=== PATIENT | male | born 1950 | race Caucasian/White ===

== ENCOUNTER 2025-02-24 06:08 | Inpatient (IN) ==
[2025-02-24] MEDS: ADENOSINE IV SOLN 3 MG/ML 2 ML VIAL IV STA (06:41)
[2025-02-24] MEDS: METOPROLOL TARTRATE 1 MG/ML VIAL IV STA (06:50)
--- NOTE | 2025-02-24 06:51 | Emergency Department Note ---
Impression & Plan Dysrhythmia, Dizziness, Acute kidney injury superimposed on chronic kidney disease, Acute dehydration, Hypomagnesemia, Elevated troponin ED Provider Note HISTORY OF PRESENT ILLNESS: Patient is a 74-year-old male presenting with dizziness and shortness of breath. Patient reports he has been feeling dizzy when he stands up and short of breath for about the last 5 days. Reports that when he stands up he feels very lightheaded like he is going to pass out. Denies any chest pain. Denies any nausea or vomiting. Denies any abdominal pain. Denies any fevers. He is on Eliquis. He states that similar symptoms occurred a few months ago when he was mated here at the hospital. He is seated in bed and denies feeling dizzy at this time. ROS: as above PHYSICAL EXAM: Constitutional: Patient appears in no acute distress. HENT: Head: Normocephalic and atraumatic. Eyes: EOMI, PERRL Mouth/Throat: Mucous membranes moist. Neck: Trachea midline. Neck supple. Cardiovascular: Tachycardic with regular rhythm. No murmurs, rubs or gallops. Intact distal pulses. Pulmonary/Chest: No respiratory distress. Breath sounds clear and equal bilaterally. No wheezes or rales. Abdominal: Abdomen soft, no tenderness, rebound or guarding. Musculoskeletal: No edema, tenderness or deformity noted. Skin: Warm and dry. No rash, erythema, pallor or cyanosis Psychiatric: Appropriate mood and affect for situation. Neurological: Alert and keenly responsive. CN II-XII grossly intact, moving all extremities equally and fully. MDM: - Vitals signs showed tachycardia. - History obtained via patient. History as above. - Chronic conditions affecting care: HTN; DM-2; COPD - Differential diagnoses include, but are not limited to: ACS; pneumonia; viral syndrome; electrolyte abnormality; dysrhythmia; PE; CVA; intracranial hemorrhage - Order placed for continuous cardiac monitoring. At this time, monitor showed rate of 177 bpm with regular rhythm, per my interpretation. - External medical records reviewed. Discharge summary dated 07/28/2024 was reviewed. Patient was admitted for syncope and collapse secondary to orthostatic hypotension. He had an echo during his admission which showed an EF of 55 to 60%. - EKG image obtained at 6:17 AM interpreted by myself showed normal sinus rhythm. Rate tachycardic at 146 bpm. QT 344. No acute ischemic changes. However, noted to have significant artifact on EKG. - Patient noted to be tachycardic on initial presentation. He had initial EKG showing sinus tachycardia as noted above. However, he did go into sustained runs of SVT. He had a persistent heart rate of 188-190. EKG image reviewed interpreted by myself obtained at 6:30 AM showed supraventricular tachycardia with a rate of 179 bpm. QT 280. - He was placed on 2 L nasal cannula and crash cart was at bedside. He was given 6 mg of adenosine and heart rate went down into the 70s and appeared to be in a sinus rhythm on telemetry. Repeat EKG obtained at 6:42 AM interpreted and reviewed by myself showed normal sinus rhythm. Tachycardic with a rate of 113 bpm. No acute ischemic changes. Patient keeps intermittently going into runs of SVT with a heart rate of 190. However, his heart rate will then go down to the 130s. Currently at 6:50 AM, heart rate on telemetry is 105. 5 mg of IV Lopressor was administered. - Laboratory workup interpreted by myself showed normal WBC; normal PT/INR; stable electrolytes other than hypomagnesemia (Mg 1.6); HAKEEM on CKD (Cr 2.07); elevated troponin (67.7); normal lactic acid; normal procalcitonin - CXR image reviewed interpreted by myself is negative pneumonia, per my interpretation. Radiology notes mild to minimal congestive changes which show interval improvement and possible trace right-sided pleural effusion. - COVID/flu/RSV negative - Patient given 1L NS in ER and 1g IV magnesium for electrolyte abnormality - Heart rate has remained in a stable normal sinus rhythm with a rate of 85 to 90 bpm. - Discussion was had with disease case manager about patient's case and need for admission - Hospitalist consulted for admission - [facility]. I have personally spent 61 minutes of critical care time in the direct management of this patient. This includes bedside care, interpretation of diagnostic studies, and testing, discussion with consultants, patient, and family members, and other required patient management activities. This 61 minutes is in excess of all separately billable procedures. ASSESSMENT AND PLAN: Diagnosis: dysrhythmia; dizziness; HAKEEM on CKD; hypomagnesemia; acute dehydration; elevated troponin Plan: admit Past Med/Surg History Problem List (Updated 02/24/25 @ 09:43 by Radha Cuellar MD) Elevated troponin (Acute) Hypomagnesemia (Acute) Acute dehydration (Acute) Acute kidney injury superimposed on chronic kidney disease (Acute) Dizziness (Acute) Dysrhythmia (Acute) Adrenal insufficiency Orthostasis Syncope Elevated procalcitonin (Acute) Elevated lactic acid level (Acute) Transaminitis (Acute) Non-ST elevation WI (NSTEMI) (Acute) Syncope and collapse (Acute) Medical History (Updated 02/24/25 @ 09:43 by Radha Cuellar MD) Hematuria Carcinoma in situ of bladder Recurrent Starting mid 03/2024, stopped immunotherapy due to issues with liver and pancreas, "currently on prednisone to help with this" Lumbar herniated disc Chronic back pain R/t injury when he was in the as he fell on his back HTN (hypertension) Malignant neoplasm of kidney 2018 [facility] Left nephrectomy and currently undergoing cysto procedures q 3months Exposure to Agent [place] [employer] History of chemotherapy 2018 - administered in [facility] 2023- immunotherapy for bladder cancer and tumor in right kidney (stopped mid 03/2024 "due to issues with liver and pancreas") Bilateral hearing loss Hearing Aids (doesn't use d/t tinnitus per patient) Diabetes type 2, controlled IDDM Obstructive sleep apnea No longer uses CPAP Gout COPD (chronic obstructive pulmonary disease) CKD (chronic kidney disease), stage III Bilateral primary osteoarthritis of hip Surgical History S/P cystoscopy with ureteral stent placement 02/2024, stent exchange Hx of toe surgery (2023) R/t ingrown toenails Port-A-Cath in place (12/05/23) Insertion MRI Compatible Access Port History of nephrectomy, left (2017) Cancer and kidney was removed in 2018 Hx of nasal septoplasty (Unknown) due to deviated septum H/O colonoscopy H/O foot surgery Right - Big Toe History of removal of Port-a-Cath 2018 H/O cystoscopy multiple (Every 3 months) Currently has stent in place History of kidney surgery (2023) Left kidney removal 2018 r/t cancer "Laser to my Right Kidney for cancer 2023" Family History Brother Clotting disorder Diabetes Social History Smoking Status: Former smoker Tobacco Type: Cigarettes Age Started Using Tobacco: 12; Age Quit Using Tobacco: 65; Second Hand Exposure: Yes (hx growing up); Do You Dip or Chew Tobacco: No; Hx Alcohol Use: No Hx Substance Use: No Preferred Language: Central African Communication Ability: Effective Perioperative Educator Required: No Beliefs That Will Affect Care: None marital status: Current Living Situation: Family current occupational status: retired How many Children do You have: 2 Feels Safe at Home: Yes Diet: diabetic during the past year weight has: remained stable Assistive Devices: Cane Allergies Allergies Allergy/AdvReac Type Severity Reaction Status Date / Time Penicillins AdvReac Severe Syncope Verified 07/25/24 20:19 sulfamethoxazole AdvReac Intermediate "Elevated Verified 07/25/24 20:19 [From Bactrim] Liver readings" trimethoprim [From Bactrim] AdvReac Intermediate "Elevated Verified 07/25/24 20:19 Liver readings" olodaterol AdvReac Mild sore throat Verified 07/25/24 20:19 [From Stiolto Respimat] tiotropium AdvReac Mild sore throat Verified 07/25/24 20:19 [From Stiolto Respimat] lisinopril AdvReac Unknown was told Verified 07/25/24 20:19 not take due to diabetes Home Meds Home Medications Medication Instructions Recorded Confirmed allopurinol 100 mg tablet 100 mg PO QAM 03/14/22 02/24/25 cholecalciferol (vitamin D3) 25 25 mcg PO BID 03/14/22 02/24/25 mcg (1,000 unit) capsule insulin glargine 100 unit/mL (3 10 unit subcut QAM 04/17/22 02/24/25 mL) subcutaneous pen duloxetine 30 mg capsule,delayed 30 mg PO DAILY 07/25/24 02/24/25 release sprinkle fludrocortisone 0.1 mg tablet 0.1 mg PO DAILY 07/25/24 02/24/25 insulin aspart U-100 100 unit/mL 0 unit subcut TIDM 07/25/24 02/24/25 (3 mL) subcutaneous pen (Novolog FlexPen U-100 Insulin aspart) midodrine 10 mg tablet 10 mg PO TID 07/25/24 02/24/25 vitamin B complex-vitamin C-folic 1 tab PO DAILY 07/25/24 02/24/25 acid 0.8 mg tablet (Renal Vitamin) apixaban 5 mg tablet 5 mg PO AMHS 02/24/25 02/24/25 atovaquone 750 mg/5 mL oral 1,500 mg PO QAM 02/24/25 02/24/25 suspension insulin NPH isoph U-100 human 100 0 unit subcut DIRECTED PRN 02/24/25 02/24/25 unit/mL subcutaneous suspension PREDNISONE (Humulin N NPH U-100 Insulin (isophane susp)) mycophenolate mofetil 500 mg tablet 1,000 mg PO AMHS 02/24/25 02/24/25 prednisolone 5 mg tablet 15 mg PO QAM 02/24/25 02/24/25 propranolol 10 mg tablet 20 mg PO AMHS 02/24/25 02/24/25 tacrolimus 1 mg tablet,extended 1 mg PO AMHS 02/24/25 02/24/25 release 24 hr Previous Rx's Medication Instructions Recorded levothyroxine 112 mcg tablet 112 mcg PO DAILYBB #30 tabs 07/28/24 (Synthroid) Results & Data (ED) Vital Signs Vital Signs - 24 hr 02/24/25 06:20 02/24/25 06:23 02/24/25 06:24 Temperature 37.9 C H Temperature Source Oral Pulse Rate 156 H 110 H Pulse Rate [Apical] Pulse Rate from SpO2 Sensor Pulse Rhythm [Apical] Respiratory Rate 22 Respiratory Effort / Characteristics Non-Labored Spontaneous Respiratory Depth Normal Respiratory Pattern Regular Blood Pressure 138/97 Blood Pressure [Left Arm] Blood Pressure Mean 110 Blood Pressure Mean [Left Arm] Blood Pressure Position Semi-fowlers Blood Pressure Position [Left Arm] Pulse Oximetry 95 95 Oxygen Delivery Method Room Air Room Air Sepsis Recent Fever Within 48 Hours Yes Sepsis New/Unexplained Change in Mental Status No Sepsis Action Taken by Nursing Physician Notified 02/24/25 06:28 02/24/25 06:30 02/24/25 06:32 Temperature Temperature Source Pulse Rate 180 H 180 H Pulse Rate [Apical] Pulse Rate from SpO2 Sensor 108 H Pulse Rhythm [Apical] Respiratory Rate Respiratory Effort / Characteristics Respiratory Depth Respiratory Pattern Blood Pressure 117/66 Blood Pressure [Left Arm] Blood Pressure Mean 90 Blood Pressure Mean [Left Arm] Blood Pressure Position Blood Pressure Position [Left Arm] Pulse Oximetry 94 Oxygen Delivery Method Sepsis Recent Fever Within 48 Hours Sepsis New/Unexplained Change in Mental Status Sepsis Action Taken by Nursing 02/24/25 06:42 02/24/25 06:44 02/24/25 06:45 Temperature Temperature Source Pulse Rate 137 H 116 H 190 H Pulse Rate [Apical] Pulse Rate from SpO2 Sensor Pulse Rhythm [Apical] Respiratory Rate 20 Respiratory Effort / Characteristics Respiratory Depth Respiratory Pattern Blood Pressure Blood Pressure [Left Arm] Blood Pressure Mean Blood Pressure Mean [Left Arm] Blood Pressure Position Blood Pressure Position [Left Arm] Pulse Oximetry 99 Oxygen Delivery Method Sepsis Recent Fever Within 48 Hours Sepsis New/Unexplained Change in Mental Status Sepsis Action Taken by Nursing 02/24/25 06:48 02/24/25 06:50 02/24/25 06:50 Temperature Temperature Source Pulse Rate 107 H 180 H Pulse Rate [Apical] Pulse Rate from SpO2 Sensor Pulse Rhythm [Apical] Respiratory Rate 23 Respiratory Effort / Characteristics Respiratory Depth Respiratory Pattern Blood Pressure 121/77 121/77 Blood Pressure [Left Arm] Blood Pressure Mean 86 Blood Pressure Mean [Left Arm] Blood Pressure Position Blood Pressure Position [Left Arm] Pulse Oximetry 100 Oxygen Delivery Method Sepsis Recent Fever Within 48 Hours Sepsis New/Unexplained Change in Mental Status Sepsis Action Taken by Nursing 02/24/25 06:51 02/24/25 06:54 02/24/25 06:54 Temperature Temperature Source Pulse Rate 101 H 155 H Pulse Rate [Apical] Pulse Rate from SpO2 Sensor Pulse Rhythm [Apical] Respiratory Rate 24 19 Respiratory Effort / Characteristics Respiratory Depth Respiratory Pattern Blood Pressure 120/72 Blood Pressure [Left Arm] Blood Pressure Mean 84 Blood Pressure Mean [Left Arm] Blood Pressure Position Blood Pressure Position [Left Arm] Pulse Oximetry 99 98 Oxygen Delivery Method Sepsis Recent Fever Within 48 Hours Sepsis New/Unexplained Change in Mental Status Sepsis Action Taken by Nursing 02/24/25 07:00 02/24/25 07:00 02/24/25 07:01 Temperature Temperature Source Pulse Rate 83 Pulse Rate [Apical] 83 Pulse Rate from SpO2 Sensor Pulse Rhythm [Apical] Irregular Respiratory Rate 22 21 Respiratory Effort / Characteristics Non-Labored Spontaneous Respiratory Depth Normal Respiratory Pattern Regular Blood Pressure 121/69 Blood Pressure [Left Arm] 121/69 Blood Pressure Mean 92 Blood Pressure Mean [Left Arm] 86 Blood Pressure Position Blood Pressure Position [Left Arm] Semi-fowlers Pulse Oximetry 98 100 Oxygen Delivery Method Room Air Sepsis Recent Fever Within 48 Hours Sepsis New/Unexplained Change in Mental Status Sepsis Action Taken by Nursing 02/24/25 07:06 02/24/25 07:06 02/24/25 07:06 Temperature Temperature Source Pulse Rate 84 83 Pulse Rate [Apical] Pulse Rate from SpO2 Sensor 82 Pulse Rhythm [Apical] Respiratory Rate 22 Respiratory Effort / Characteristics Respiratory Depth Respiratory Pattern Blood Pressure 118/74 118/74 Blood Pressure [Left Arm] Blood Pressure Mean 101 Blood Pressure Mean [Left Arm] Blood Pressure Position Blood Pressure Position [Left Arm] Pulse Oximetry 98 Oxygen Delivery Method Sepsis Recent Fever Within 48 Hours Sepsis New/Unexplained Change in Mental Status Sepsis Action Taken by Nursing 02/24/25 07:09 02/24/25 07:11 02/24/25 07:11 Temperature Temperature Source Pulse Rate 82 Pulse Rate [Apical] Pulse Rate from SpO2 Sensor 83 Pulse Rhythm [Apical] Respiratory Rate 21 Respiratory Effort / Characteristics Respiratory Depth Respiratory Pattern Blood Pressure 133/83 Blood Pressure [Left Arm] Blood Pressure Mean 108 Blood Pressure Mean [Left Arm] Blood Pressure Position Blood Pressure Position [Left Arm] Pulse Oximetry 98 97 Oxygen Delivery Method Room Air Sepsis Recent Fever Within 48 Hours Sepsis New/Unexplained Change in Mental Status Sepsis Action Taken by Nursing 02/24/25 07:12 02/24/25 07:18 02/24/25 07:20 Temperature Temperature Source Pulse Rate 84 81 Pulse Rate [Apical] Pulse Rate from SpO2 Sensor 84 81 Pulse Rhythm [Apical] Respiratory Rate 20 Respiratory Effort / Characteristics Respiratory Depth Respiratory Pattern Blood Pressure 139/79 Blood Pressure [Left Arm] Blood Pressure Mean 109 Blood Pressure Mean [Left Arm] Blood Pressure Position Blood Pressure Position [Left Arm] Pulse Oximetry 98 98 Oxygen Delivery Method Sepsis Recent Fever Within 48 Hours Sepsis New/Unexplained Change in Mental Status Sepsis Action Taken by Nursing 02/24/25 07:21 02/24/25 07:30 02/24/25 07:30 Temperature Temperature Source Pulse Rate 81 81 Pulse Rate [Apical] Pulse Rate from SpO2 Sensor 81 81 Pulse Rhythm [Apical] Respiratory Rate 24 Respiratory Effort / Characteristics Respiratory Depth Respiratory Pattern Blood Pressure 145/81 H Blood Pressure [Left Arm] Blood Pressure Mean 103 Blood Pressure Mean [Left Arm] Blood Pressure Position Blood Pressure Position [Left Arm] Pulse Oximetry 97 95 Oxygen Delivery Method Sepsis Recent Fever Within 48 Hours Sepsis New/Unexplained Change in Mental Status Sepsis Action Taken by Nursing 02/24/25 07:48 02/24/25 07:50 02/24/25 07:51 Temperature Temperature Source Pulse Rate 87 86 Pulse Rate [Apical] Pulse Rate from SpO2 Sensor 86 88 Pulse Rhythm [Apical] Respiratory Rate 27 H 20 Respiratory Effort / Characteristics Respiratory Depth Respiratory Pattern Blood Pressure 134/78 Blood Pressure [Left Arm] Blood Pressure Mean 96 Blood Pressure Mean [Left Arm] Blood Pressure Position Blood Pressure Position [Left Arm] Pulse Oximetry 96 96 Oxygen Delivery Method Sepsis Recent Fever Within 48 Hours Sepsis New/Unexplained Change in Mental Status Sepsis Action Taken by Nursing 02/24/25 08:00 02/24/25 08:00 02/24/25 08:09 Temperature Temperature Source Pulse Rate 88 85 Pulse Rate [Apical] Pulse Rate from SpO2 Sensor 86 86 Pulse Rhythm [Apical] Respiratory Rate 25 H 24 Respiratory Effort / Characteristics Respiratory Depth Respiratory Pattern Blood Pressure 128/80 Blood Pressure [Left Arm] Blood Pressure Mean 90 Blood Pressure Mean [Left Arm] Blood Pressure Position Blood Pressure Position [Left Arm] Pulse Oximetry 92 96 Oxygen Delivery Method Sepsis Recent Fever Within 48 Hours Sepsis New/Unexplained Change in Mental Status Sepsis Action Taken by Nursing 02/24/25 08:10 02/24/25 08:12 02/24/25 08:18 Temperature Temperature Source Pulse Rate 88 89 Pulse Rate [Apical] Pulse Rate from SpO2 Sensor 86 85 Pulse Rhythm [Apical] Respiratory Rate 18 24 Respiratory Effort / Characteristics Respiratory Depth Respiratory Pattern Blood Pressure 128/86 Blood Pressure [Left Arm] Blood Pressure Mean 101 Blood Pressure Mean [Left Arm] Blood Pressure Position Blood Pressure Position [Left Arm] Pulse Oximetry 97 94 Oxygen Delivery Method Sepsis Recent Fever Within 48 Hours Sepsis New/Unexplained Change in Mental Status Sepsis Action Taken by Nursing 02/24/25 08:20 02/24/25 08:21 02/24/25 08:30 Temperature Temperature Source Pulse Rate 87 Pulse Rate [Apical] Pulse Rate from SpO2 Sensor 87 Pulse Rhythm [Apical] Respiratory Rate 25 H Respiratory Effort / Characteristics Respiratory Depth Respiratory Pattern Blood Pressure 138/72 133/79 Blood Pressure [Left Arm] Blood Pressure Mean 99 108 Blood Pressure Mean [Left Arm] Blood Pressure Position Blood Pressure Position [Left Arm] Pulse Oximetry 95 Oxygen Delivery Method Sepsis Recent Fever Within 48 Hours Sepsis New/Unexplained Change in Mental Status Sepsis Action Taken by Nursing 02/24/25 08:30 02/24/25 08:39 02/24/25 08:41 Temperature Temperature Source Pulse Rate 89 88 Pulse Rate [Apical] Pulse Rate from SpO2 Sensor 89 84 Pulse Rhythm [Apical] Respiratory Rate 23 18 Respiratory Effort / Characteristics Respiratory Depth Respiratory Pattern Blood Pressure 142/78 H Blood Pressure [Left Arm] Blood Pressure Mean 107 Blood Pressure Mean [Left Arm] Blood Pressure Position Blood Pressure Position [Left Arm] Pulse Oximetry 95 Oxygen Delivery Method Sepsis Recent Fever Within 48 Hours Sepsis New/Unexplained Change in Mental Status Sepsis Action Taken by Nursing 02/24/25 08:42 02/24/25 08:51 02/24/25 08:51 Temperature Temperature Source Pulse Rate 88 90 Pulse Rate [Apical] Pulse Rate from SpO2 Sensor 88 92 H Pulse Rhythm [Apical] Respiratory Rate 27 H 25 H Respiratory Effort / Characteristics Respiratory Depth Respiratory Pattern Blood Pressure 134/69 Blood Pressure [Left Arm] Blood Pressure Mean 75 Blood Pressure Mean [Left Arm] Blood Pressure Position Blood Pressure Position [Left Arm] Pulse Oximetry 95 98 Oxygen Delivery Method Sepsis Recent Fever Within 48 Hours Sepsis New/Unexplained Change in Mental Status Sepsis Action Taken by Nursing 02/24/25 09:00 02/24/25 09:00 Temperature Temperature Source Pulse Rate 90 Pulse Rate [Apical] Pulse Rate from SpO2 Sensor 160 H Pulse Rhythm [Apical] Respiratory Rate 18 Respiratory Effort / Characteristics Respiratory Depth Respiratory Pattern Blood Pressure 119/78 Blood Pressure [Left Arm] Blood Pressure Mean 96 Blood Pressure Mean [Left Arm] Blood Pressure Position Blood Pressure Position [Left Arm] Pulse Oximetry Oxygen Delivery Method Sepsis Recent Fever Within 48 Hours Sepsis New/Unexplained Change in Mental Status Sepsis Action Taken by Nursing Laboratory Data 02/24/25 06:32 02/24/25 07:41 Lab Results 02/24/25 02/24/25 02/24/25 Range/Units 06:32 06:32 06:39 WBC 6.83 (4.8-10.8) K/ul RBC 4.60 L (4.70-6.10) M/uL Hgb 13.6 L (14.0-18.0) g/dL POC Hgb 13.3 L (14.0-18.0) g/dl Hct 39.4 L (42.0-52.0) % POC Hct 39 L (42-52) % MCV 85.7 (80.0-100.0) fL MCH 29.6 (25.0-34.0) pg MCHC 34.5 (32.0-36.0) g/dL RDW Std Deviation 41.1 (36.4-46.3) fL RDW Coeff of Kusum 13.3 (11.5-14.5) % Plt Count 189 (130-400) K/uL MPV 10.2 (9.4-12.4) fL Immature Gran % (Auto) 0.6 % Neut % (Auto) 69.0 % Lymph % (Auto) 16.8 % Fannin % (Auto) 12.4 % Eos % (Auto) 0.6 % Baso % (Auto) 0.6 % Neut # (Auto) 4.71 (1.40-6.50) K/uL Lymph # (Auto) 1.15 L (1.20-3.40) K/uL Fannin # (Auto) 0.85 H (0.11-0.59) K/uL Eos # (Auto) 0.04 (0.00-0.50) K/uL Baso # (Auto) 0.04 (0.00-0.20) K/uL Immature Gran # (Auto) 0.04 (0.01-0.20) K/uL PT 10.9 (9.0-12.0) Seconds INR 1.0 (0.9-1.1) POC Sodium 133 L (135-144) mmol/L Sodium (136-145) mmol/L POC Potassium 3.9 (3.3-5.0) mmol/L Potassium (3.5-5.1) mmol/L POC Chloride 95 L (101-112) mmol/L Chloride (98-107) mmol/L Carbon Dioxide (21-32) mmol/L POC Total CO2 24 (24-31) mmol/L Anion Gap (3-11) POC Anion Gap 19.0 (16-25) mmol/L POC BUN 31 H (7-18) mg/dl BUN (6-23) mg/dl Creatinine (0.6-1.4) mg/dl POC Creatinine 2.4 H (0.6-1.3) mg/dl Est Cr Clr Drug Dosing ml/min eGFR BUN/Creatinine Ratio (10-20) Glucose (70-99(Fasting)) mg/dl POC Glucose (other) 189 H (70-99) mg/dl Lactate (0.4-2.0) mmol/L Calcium (8.6-10.3) mg/dl POC Ioniz Calcium Rohit 1.17 (1.12-1.32) mmol/l Magnesium (1.7-2.4) mg/dl Total Bilirubin (0.2-1.0) mg/dl AST (13-39) U/L ALT (7-52) U/L Alkaline Phosphatase (34-104) U/L Troponin I High Sens (0-20) pg/ml Total Protein (6.0-8.3) gm/dl Albumin (3.4-5.0) gm/dl Globulin (2.5-4.0) gm/dl Albumin/Globulin Ratio (0.9-2) Procalcitonin 0.37 Cancelled (0-0.5) ng/ml Lyme Disease Screen Negative (Negative) SARS-CoV-2 (PCR) (Negative) Influenza Type A (PCR) (Neg) Influenza Type B (PCR) (Neg) RSV (RT-PCR) (Neg) 02/24/25 02/24/25 Range/Units 07:03 07:41 WBC (4.8-10.8) K/ul RBC (4.70-6.10) M/uL Hgb (14.0-18.0) g/dL POC Hgb (14.0-18.0) g/dl Hct (42.0-52.0) % POC Hct (42-52) % MCV (80.0-100.0) fL MCH (25.0-34.0) pg MCHC (32.0-36.0) g/dL RDW Std Deviation (36.4-46.3) fL RDW Coeff of Kusum (11.5-14.5) % Plt Count (130-400) K/uL MPV (9.4-12.4) fL Immature Gran % (Auto) % Neut % (Auto) % Lymph % (Auto) % Fannin % (Auto) % Eos % (Auto) % Baso % (Auto) % Neut # (Auto) (1.40-6.50) K/uL Lymph # (Auto) (1.20-3.40) K/uL Fannin # (Auto) (0.11-0.59) K/uL Eos # (Auto) (0.00-0.50) K/uL Baso # (Auto) (0.00-0.20) K/uL Immature Gran # (Auto) (0.01-0.20) K/uL PT (9.0-12.0) Seconds INR (0.9-1.1) POC Sodium (135-144) mmol/L Sodium 135 L (136-145) mmol/L POC Potassium (3.3-5.0) mmol/L Potassium 4.1 (3.5-5.1) mmol/L POC Chloride (101-112) mmol/L Chloride 100 (98-107) mmol/L Carbon Dioxide 27 (21-32) mmol/L POC Total CO2 (24-31) mmol/L Anion Gap 8 (3-11) POC Anion Gap (16-25) mmol/L POC BUN (7-18) mg/dl BUN 29 H (6-23) mg/dl Creatinine 2.07 H (0.6-1.4) mg/dl POC Creatinine (0.6-1.3) mg/dl Est Cr Clr Drug Dosing 33.2 ml/min eGFR 32.99 BUN/Creatinine Ratio 14.0 (10-20) Glucose 177 H (70-99(Fasting)) mg/dl POC Glucose (other) (70-99) mg/dl Lactate 1.6 (0.4-2.0) mmol/L Calcium 8.6 (8.6-10.3) mg/dl POC Ioniz Calcium Rohit (1.12-1.32) mmol/l Magnesium 1.6 L (1.7-2.4) mg/dl Total Bilirubin 0.9 (0.2-1.0) mg/dl AST 22 (13-39) U/L ALT 24 (7-52) U/L Alkaline Phosphatase 79 (34-104) U/L Troponin I High Sens 67.7 H* (0-20) pg/ml Total Protein 5.2 L (6.0-8.3) gm/dl Albumin 3.3 L (3.4-5.0) gm/dl Globulin 1.9 L (2.5-4.0) gm/dl Albumin/Globulin Ratio 1.7 (0.9-2) Procalcitonin (0-0.5) ng/ml Lyme Disease Screen (Negative) SARS-CoV-2 (PCR) NEGATIVE (Negative) Influenza Type A (PCR) Negative (Neg) Influenza Type B (PCR) Negative (Neg) RSV (RT-PCR) Negative (Neg) Administered Medications Discontinued Medications Adenosine (Adenosine Iv Soln 3 Mg/Ml 2 Ml Vial) Confirm Administered Dose 6 mg IV .STK-MED ONE Stop: 02/24/25 06:38 Last Admin: 02/24/25 07:01 Dose: Not Given Documented By: EMB Adenosine (Adenosine Iv Soln 3 Mg/Ml 2 Ml Vial) 6 mg IV NOW STA Stop: 02/24/25 07:01 Last Admin: 02/24/25 06:41 Dose: 6 mg Documented By: EMB Sodium Chloride (Nss) 1,000 mls @ 999 mls/hr IV .Q1H1M ONE Stop: 02/24/25 08:04 Last Infusion: 02/24/25 08:17 Dose: Infused Documented By: Admin: 02/24/25 07:05 Dose: 999 mls/hr Documented By: EMB Magnesium Sulfate/Dextrose (Magnesium Sulfate / D5w) 1 gm in 100 mls @ 100 mls/hr IV NOW STA Stop: 02/24/25 09:22 Last Admin: 02/24/25 08:37 Dose: 100 mls/hr Documented By: TNK Metoprolol Tartrate (Metoprolol Tartrate 1 Mg/Ml Vial) 5 mg IV NOW STA Stop: 02/24/25 06:47 Last Admin: 02/24/25 06:50 Dose: 5 mg Documented By: EMB Metoprolol Tartrate (Metoprolol Tartrate 1 Mg/Ml Vial) Confirm Administered Dose 5 mg IV .STK-MED ONE Stop: 02/24/25 06:49 Last Admin: 02/24/25 07:01 Dose: Not Given Documented By: EMB Imaging Data Radiologist's Impression: Chest X-Ray 02/24/25 06:46 EXAM: XR chest 1V portable CLINICAL HISTORY: dizziness TECHNIQUE: An X-ray image of the chest was obtained in AP projection. 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 Its tip is at the cavoatrial junction in an optimal position. Slightly increased bronchovascular markings are present in the suprahilar region, likely congestive in etiology. No lobar collapse or consolidation seen. A blunted right costophrenic angle is seen, which could be due to a streak of pleural fluid or minimal pleural thickening. Normal-appearing left CP angle. Heart and Mediastinum: Heart size and shape are normal. No mediastinal widening or masses. No hilar or mediastinal lymphadenopathy. Bony Thorax: Bony thorax appears intact without fractures or deformities. Soft Tissues: Soft tissues overlying the chest wall are unremarkable. IMPRESSION: 1. Mild to minimal congestive changes are seen in the lung lamb. Interval improvement. 2. Possible trace of right-sided pleural effusion/pleural thickening. Interval new. 3. Left jugular CVP line in situ. Its tip is at the cavoatrial junction in an optimal position. Interval stable. Electronically signed by Christoph Dove 02-24-2025 08:24 AM Discharge Plan Visit Data Chief Complaint: Dizziness Stated Complaint: DIZZINESS ED Provider: Radha Cuellar Discharge Problem: Dysrhythmia, Dizziness, Acute kidney injury superimposed on chronic kidney disease, Acute dehydration, Hypomagnesemia, Elevated troponin Patient Disposition: Admitted As Inpatient Condition: Fair Forms Stand Alone Forms: My [facility] Prescriptions Prescriptions: No Action cholecalciferol (vitamin D3) 25 mcg (1,000 unit) capsule 25 mcg PO BID allopurinol 100 mg tablet 100 mg PO QAM insulin glargine 100 unit/mL (3 mL) insulin pen 10 unit subcut QAM mycophenolate mofetil 500 mg Tablet 1,000 mg PO AMHS propranolol 10 mg Tablet 20 mg PO AMHS Humulin N NPH U-100 Insulin 100 unit/mL Suspension 0 unit SUBCUT DIRECTED PRN (Reason: PREDNISONE) Rx Instructions: 16 UNITS ON PREDNISONE DAYS prednisolone 5 mg Tablet 15 mg PO QAM Rx Instructions: WITH NPH INSULIN atovaquone 750 mg/5 mL Suspension 1,500 mg PO QAM Rx Instructions: must administer with food, preferably a high-fat meal apixaban 5 mg Tablet 5 mg PO AMHS tacrolimus 1 mg Tablet Extended Release 24 Hr 1 mg PO AMHS Rx Instructions: must be taken on empty stomach Renal Vitamin 0.8 mg Tablet 1 tab PO DAILY fludrocortisone 0.1 mg Tablet 0.1 mg PO DAILY midodrine 10 mg Tablet 10 mg PO TID Rx Instructions: TAKE AT 0500, 1100, & 1700. do not give last dose of day after 6PM or within 4 hrs of bedtime insulin aspart U-100 [Novolog FlexPen U-100 Insulin] 100 unit/mL (3 mL) Insulin Pen 0 unit SUBCUT TIDM Rx Instructions: TAKES 8 UNITS W/BREAKFAST, 10 UNITS W/LUNCH, 10 UNITS W/SUPPER PLUS SLIDING SCALE WITH HIS MEALS 151-200 - 2 UNITS 201-250 - 4 UNITS 251-300 - 6 UNITS 301-350 - 8 UNITS 351-400 - 10 UNITS OVER 400 - 10 UNITS duloxetine 30 mg Capsule, Delayed Rel Sprinkle 30 mg PO DAILY levothyroxine [Synthroid] 112 mcg Tablet 112 mcg PO DAILYBB Qty: 30 0RF Referrals Referrals: Charlette Barber PA-C [Outside Practitioners] -
[2025-02-24] MEDS: METOPROLOL TARTRATE 1 MG/ML VIAL IV ONE (07:01)
[2025-02-24] MEDS: ADENOSINE IV SOLN 3 MG/ML 2 ML VIAL IV ONE (07:01)
[2025-02-24] MEDS: SODIUM CHLORIDE 0.9% 1,000 ML IV ONE (07:05)
[2025-02-24 07:06] LABS: Hematocrit (blood only) 39.4 % (42.0-52.0); Hemoglobin 13.6 g/dL (14.0-18.0); Immature Granulocytes # (auto) 0.04 K/uL (0.01-0.20); Immature Granulocytes % (auto) 0.6 %; Mean Corpuscular Hemoglobin 29.6 pg (25.0-34.0); Mean Corpuscular Volume 85.7 fL (80.0-100.0); Platelet Count 189 K/uL (130-400); RDW Standard Deviation 41.1 fL (36.4-46.3); Red Blood Count 4.60 M/uL (4.70-6.10); White Blood Count 6.83 K/ul (4.8-10.8)
[2025-02-24 07:34] LABS: INR 1.0 (0.9-1.1); Prothrombin Time 10.9 Seconds (9.0-12.0)
[2025-02-24 08:09] LABS: Influenza A virus by PCR Negative (Neg); Influenza B virus by PCR Negative (Neg); SARS CoV2 RNA(COVID-19) Ceph NEGATIVE (Negative)
[2025-02-24 08:10] LABS: Alanine Aminotransferase 24.0 U/L (7-52); Albumin Globulin Ratio 1.7 (0.9-2); Albumin Level 3.3 gm/dl (3.4-5.0); Alkaline Phosphatase 79.0 U/L (34-104); Anion Gap 8.0 (3-11); Bilirubin,Total 0.9 mg/dl (0.2-1.0); Blood Urea Nitrogen 29.0 mg/dl (6-23); Calcium 8.6 mg/dl (8.6-10.3); Carbon Dioxide 27.0 mmol/L (21-32); Chloride 100.0 mmol/L (98-107); Creatinine Clr Calc Pharmacy 33.2 ml/min; Globulin 1.9 gm/dl (2.5-4.0); Glucose 177.0 mg/dl (70-99(Fasting)); Magnesium 1.6 mg/dl (1.7-2.4); Potassium 4.1 mmol/L (3.5-5.1); Sodium 135.0 mmol/L (136-145); Total Protein 5.2 gm/dl (6.0-8.3)
--- NOTE | 2025-02-24 08:24 | XRay Report ---
EXAM: XR chest 1V portable CLINICAL HISTORY: dizziness TECHNIQUE: An X-ray image of the chest was obtained in AP projection. 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 Its tip is at the cavoatrial junction in an optimal position. Slightly increased bronchovascular markings are present in the suprahilar region, likely congestive in etiology. No lobar collapse or consolidation seen. A blunted right costophrenic angle is seen, which could be due to a streak of pleural fluid or minimal pleural thickening. Normal-appearing left CP angle. Heart and Mediastinum: Heart size and shape are normal. No mediastinal widening or masses. No hilar or mediastinal lymphadenopathy. Bony Thorax: Bony thorax appears intact without fractures or deformities. Soft Tissues: Soft tissues overlying the chest wall are unremarkable. IMPRESSION: 1. Mild to minimal congestive changes are seen in the lung lamb. Interval improvement. 2. Possible trace of right-sided pleural effusion/pleural thickening. Interval new. 3. Left jugular CVP line in situ. Its tip is at the cavoatrial junction in an optimal position. Interval stable. Electronically signed by Christoph Dove 02-24-2025 08:24 AM
[2025-02-24] MEDS: MAGNESIUM SULFATE / D5W 1 GM/100 ML BAG IV STA (08:37)
[2025-02-24 08:38] LABS: Procalcitonin 0.37 ng/ml (0-0.5)
--- NOTE | 2025-02-24 09:02 | History & Physical Report ---
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 Brief recurrence responded well to IV metoprolol - Admit telemetry, cardioversion once in place - Vitals remain stable, cardiology consultation as noted below -Patient does endorse a history of intermittent atrial fibrillation, he has been on Eliquis for DVT. #Chest pain #Elevated troponin -In addition to chest pressure during these episodes patient reports-progressive stable angina type symptoms with activity/going up steps for the last several months primarily shortness of breath and chest pressure last stress test in 2019, - He was to follow-up with cardiology at the [facility] in [place] however has had difficulty coordinating those appointments for the last several months - Admit telemetry, cardiology consultation, aspirin given - Symptom-free at this time - Serial troponin #Type 2 diabetes -Sliding scale initially, A1c -Diabetic/heart healthy diet #HTN -monitor, stable at this time, midodrine in his med list #Hypothyroidism -continue synthroid, check TSH #HAKEEM #CKD - Baseline creatinine 1.31.5, 2.1 on admission, fluid resuscitation in the emergency department, serial monitoring - Urinalysis #Hypomagnesemia Goal greater than 2, 1.6 on admission, 2 g IV given, oral supplement #DVT -Continue Eliquis #S/P ureteral carcinoma -tacrolimus and mycphenolate #Anxiety/depression -duloxetine #FEN - Cardiac/diabetic diet #CODE STATUS - Full code per his wishes History of Present Illness Chief Complaint: dizziness Primary Care Provider: Reji Jarrett MD 73-year-old male with past medical history significant for diabetes, CKD stage III, COPD, gout and 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 Reports that when he stands up he feels very lightheaded "like he is going to pass out." Denies any chest pain. Denies any nausea or vomiting. Denies any abdominal pain. Denies any fevers. He is on Eliquis. He states that similar symptoms occurred a few months ago when he was admitted here at the hospital.. This morning started with left-sided chest pain and pressure. Patient reports no antecedent illness. No medication changes or other events elicited with the start of symptoms. Presentation to the ED noted to have a heart rate of 190. He was given adenosine after initial EKG and labs are drawn. Rhythm improved in the low 100s. His mother brief run into the 190s. Was given 5 mg of IV Lopressor and his rate has been in the 80s since then. Underlying rhythm after adenosine was sinus tachycardia. Vital signs remained stable. He was referred for admission for rate and rhythm evaluation. Further diagnostic testing Further salient history. Patient reports that he has had chest pressure and shortness of breath with exertion but has been progressive over the last several months. He also has a history of atrial fibrillation. Continues with Eliquis for DVT. States that he has had [facility] however he has been unable to coordinate these appointments for the last several months. States that during these episodes specifically with given the adenosine he feels almost like an elephant is sitting on his chest. Symptoms have been worse over the last several days with the dizziness and orthostasis as well. Allergies Allergy/AdvReac Type Severity Reaction Status Date / Time Penicillins AdvReac Severe Syncope Verified 07/25/24 20:19 sulfamethoxazole AdvReac Intermediate "Elevated Verified 07/25/24 20:19 [From Bactrim] Liver readings" trimethoprim [From Bactrim] AdvReac Intermediate "Elevated Verified 07/25/24 20:19 Liver readings" olodaterol AdvReac Mild sore throat Verified 07/25/24 20:19 [From Stiolto Respimat] tiotropium AdvReac Mild sore throat Verified 07/25/24 20:19 [From Stiolto Respimat] lisinopril AdvReac Unknown was told Verified 07/25/24 20:19 not take due to diabetes Home Medications Medication Instructions Recorded Confirmed Type allopurinol 100 mg tablet 100 mg PO QAM 03/14/22 02/24/25 History cholecalciferol (vitamin D3) 25 25 mcg PO BID 03/14/22 02/24/25 History mcg (1,000 unit) capsule insulin glargine 100 unit/mL (3 10 unit subcut QAM 04/17/22 02/24/25 History mL) subcutaneous pen duloxetine 30 mg capsule,delayed 30 mg PO DAILY 07/25/24 02/24/25 History release sprinkle fludrocortisone 0.1 mg tablet 0.1 mg PO DAILY 07/25/24 02/24/25 History insulin aspart U-100 100 unit/mL 0 unit subcut TIDM 07/25/24 02/24/25 History (3 mL) subcutaneous pen (Novolog FlexPen U-100 Insulin aspart) midodrine 10 mg tablet 10 mg PO TID 07/25/24 02/24/25 History vitamin B complex-vitamin C-folic 1 tab PO DAILY 07/25/24 02/24/25 History acid 0.8 mg tablet (Renal Vitamin) levothyroxine 112 mcg tablet 112 mcg PO DAILYBB #30 tabs 07/28/24 02/24/25 Rx (Synthroid) apixaban 5 mg tablet 5 mg PO AMHS 02/24/25 02/24/25 History atovaquone 750 mg/5 mL oral 1,500 mg PO QAM 02/24/25 02/24/25 History suspension insulin NPH isoph U-100 human 100 0 unit subcut DIRECTED PRN 02/24/25 02/24/25 History unit/mL subcutaneous suspension PREDNISONE (Humulin N NPH U-100 Insulin (isophane susp)) mycophenolate mofetil 500 mg tablet 1,000 mg PO AMHS 02/24/25 02/24/25 History prednisolone 5 mg tablet 15 mg PO QAM 02/24/25 02/24/25 History propranolol 10 mg tablet 20 mg PO AMHS 02/24/25 02/24/25 History tacrolimus 1 mg tablet,extended 1 mg PO AMHS 02/24/25 02/24/25 History release 24 hr Past Med/Surg History Problem List (Updated 02/24/25 @ 10:36 by Chilo [place] MD) SVT (supraventricular tachycardia) Elevated troponin (Acute) Hypomagnesemia (Acute) Acute dehydration (Acute) Acute kidney injury superimposed on chronic kidney disease (Acute) Dizziness (Acute) Dysrhythmia (Acute) Adrenal insufficiency Orthostasis Syncope Elevated procalcitonin (Acute) Elevated lactic acid level (Acute) Transaminitis (Acute) Non-ST elevation CT (NSTEMI) (Acute) Syncope and collapse (Acute) Medical History (Updated 02/24/25 @ 10:36 by Chilo [place] MD) Hematuria Carcinoma in situ of bladder Recurrent Starting mid 03/2024, stopped immunotherapy due to issues with liver and pancreas, "currently on prednisone to help with this" Lumbar herniated disc Chronic back pain R/t injury when he was in the as he fell on his back HTN (hypertension) Malignant neoplasm of kidney 2018 [facility] Left nephrectomy and currently undergoing cysto procedures q 3months Exposure to Agent Gentry [place] [employer] History of chemotherapy 2018 - administered in [facility] 2023- immunotherapy for bladder cancer and tumor in right kidney (stopped mid 03/2024 "due to issues with liver and pancreas") Bilateral hearing loss Hearing Aids (doesn't use d/t tinnitus per patient) Diabetes type 2, controlled IDDM Obstructive sleep apnea No longer uses CPAP Gout COPD (chronic obstructive pulmonary disease) CKD (chronic kidney disease), stage III Bilateral primary osteoarthritis of hip Surgical History S/P cystoscopy with ureteral stent placement 02/2024, stent exchange Hx of toe surgery (2023) R/t ingrown toenails Port-A-Cath in place (12/05/23) Insertion MRI Compatible Access Port History of nephrectomy, left (2017) Cancer and kidney was removed in 2018 Hx of nasal septoplasty (Unknown) due to deviated septum H/O colonoscopy H/O foot surgery Right - Big Toe History of removal of Port-a-Cath 2018 H/O cystoscopy multiple (Every 3 months) Currently has stent in place History of kidney surgery (2023) Left kidney removal 2018 r/t cancer "Laser to my Right Kidney for cancer 2023" Family History Brother Clotting disorder Diabetes Social History Smoking Status: Former smoker Tobacco Type: Cigarettes Age Started Using Tobacco: 12; Age Quit Using Tobacco: 65; Second Hand Exposure: Yes (hx growing up); Do You Dip or Chew Tobacco: No; Hx Alcohol Use: No Hx Substance Use: No Preferred Language: Chinese Communication Ability: Effective American Board Certified Orthotist Required: No Beliefs That Will Affect Care: None marital status: Current Living Situation: Family current occupational status: retired How many Children do You have: 2 Feels Safe at Home: Yes Diet: diabetic during the past year weight has: remained stable Assistive Devices: Cane Review of Systems Review of Systems: Full 10 point review of systems negative aside from that noted in HPI Physical Exam Physical Exam: General: NAD Head: NCAT ENT: oropharynx clear, MMM Neck: supple, no JVD. Lungs: clear to auscultation no wheezing or crackles Heart: Tachycardiac, Irredular; no murmur, rub or gallop. Abdomen: normal bowel sounds, soft, nontender, no distension Extremities: no pretibial edema, no erythema seen Neuro: alert, oriented CN 2- 12 intact, no dysarthria; moves extremities Results & Data Results & Data Vital Signs (Past 12 Hours) Vital Signs Temp Pulse Pulse Resp BP BP Pulse Ox 02/24/25 07:30 145/81 H 02/24/25 07:30 81 95 02/24/25 07:21 81 24 97 02/24/25 07:20 139/79 02/24/25 07:18 81 20 98 02/24/25 07:12 84 98 02/24/25 07:11 133/83 02/24/25 07:11 97 02/24/25 07:09 82 21 98 02/24/25 07:06 83 22 98 02/24/25 07:06 118/74 02/24/25 07:06 84 118/74 02/24/25 07:01 121/69 02/24/25 07:00 83 21 100 02/24/25 07:00 83 22 121/69 98 02/24/25 06:54 155 H 19 98 02/24/25 06:54 120/72 02/24/25 06:51 101 H 24 99 02/24/25 06:50 121/77 02/24/25 06:50 180 H 121/77 02/24/25 06:48 107 H 23 100 02/24/25 06:45 190 H 02/24/25 06:44 116 H 02/24/25 06:42 137 H 20 99 02/24/25 06:32 117/66 02/24/25 06:30 180 H 94 02/24/25 06:28 180 H 02/24/25 06:24 110 H 02/24/25 06:23 37.9 C H 156 H 22 138/97 95 02/24/25 06:20 95 O2 Del Method 02/24/25 07:30 02/24/25 07:30 02/24/25 07:21 02/24/25 07:20 02/24/25 07:18 02/24/25 07:12 02/24/25 07:11 02/24/25 07:11 Room Air 02/24/25 07:09 02/24/25 07:06 02/24/25 07:06 02/24/25 07:06 02/24/25 07:01 02/24/25 07:00 02/24/25 07:00 Room Air 02/24/25 06:54 02/24/25 06:54 02/24/25 06:51 02/24/25 06:50 02/24/25 06:50 02/24/25 06:48 02/24/25 06:45 02/24/25 06:44 02/24/25 06:42 02/24/25 06:32 02/24/25 06:30 02/24/25 06:28 02/24/25 06:24 02/24/25 06:23 Room Air 02/24/25 06:20 Room Air Laboratory Results 02/24/25 02/24/25 02/24/25 09:28 07:41 07:03 WBC RBC Hgb POC Hgb Hct POC Hct MCV MCH MCHC RDW Std Deviation RDW Coeff of [place]us[place] Plt Count MPV Immature Gran % (Auto) Neut % (Auto) Lymph % (Auto) [place] % (Auto) Eos % (Auto) Baso % (Auto) Neut # (Auto) Lymph # (Auto) [place] # (Auto) Eos # (Auto) Baso # (Auto) Immature Gran # (Auto) PT INR POC Sodium Sodium 135 L POC Potassium Potassium 4.1 POC Chloride Chloride 100 Carbon Dioxide 27 POC Total CO2 Anion Gap 8 POC Anion Gap POC BUN BUN 29 H Creatinine 2.07 H POC Creatinine Est Cr Clr Drug Dosing 33.2 eGFR 32.99 BUN/Creatinine Ratio 14.0 Glucose 177 H POC Glucose (other) Lactate 1.6 Calcium 8.6 POC Ioniz Calcium Rohit Magnesium 1.6 L Total Bilirubin 0.9 AST 22 ALT 24 Alkaline Phosphatase 79 Troponin I High Sens 60.3 H* 67.7 H* Total Protein 5.2 L Albumin 3.3 L Globulin 1.9 L Albumin/Globulin Ratio 1.7 Procalcitonin Lyme Disease Screen SARS-CoV-2 (PCR) NEGATIVE Influenza Type A (PCR) Negative Influenza Type B (PCR) Negative RSV (RT-PCR) Negative 02/24/25 02/24/25 02/24/25 06:39 06:32 06:32 WBC 6.83 RBC 4.60 L Hgb 13.6 L POC Hgb 13.3 L Hct 39.4 L POC Hct 39 L MCV 85.7 MCH 29.6 MCHC 34.5 RDW Std Deviation 41.1 RDW Coeff of [place] 13.3 Plt Count 189 MPV 10.2 Immature Gran % (Auto) 0.6 Neut % (Auto) 69.0 Lymph % (Auto) 16.8 [place] % (Auto) 12.4 Eos % (Auto) 0.6 Baso % (Auto) 0.6 Neut # (Auto) 4.71 Lymph # (Auto) 1.15 L [place] # (Auto) 0.85 H Eos # (Auto) 0.04 Baso # (Auto) 0.04 Immature Gran # (Auto) 0.04 PT 10.9 INR 1.0 POC Sodium 133 L Sodium POC Potassium 3.9 Potassium POC Chloride 95 L Chloride Carbon Dioxide POC Total CO2 24 Anion Gap POC Anion Gap 19.0 POC BUN 31 H BUN Creatinine POC Creatinine 2.4 H Est Cr Clr Drug Dosing eGFR BUN/Creatinine Ratio Glucose POC Glucose (other) 189 H Lactate Calcium POC Ioniz Calcium Rohit 1.17 Magnesium Total Bilirubin AST ALT Alkaline Phosphatase Troponin I High Sens Total Protein Albumin Globulin Albumin/Globulin Ratio Procalcitonin Cancelled 0.37 Lyme Disease Screen Negative SARS-CoV-2 (PCR) Influenza Type A (PCR) Influenza Type B (PCR) RSV (RT-PCR) Diagnostic Findings Chest X-Ray 02/24/25 06:46 EXAM: XR chest 1V portable CLINICAL HISTORY: dizziness TECHNIQUE: An X-ray image of the chest was obtained in AP projection. 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 Its tip is at the cavoatrial junction in an optimal position. Slightly increased bronchovascular markings are present in the suprahilar region, likely congestive in etiology. No lobar collapse or consolidation seen. A blunted right costophrenic angle is seen, which could be due to a streak of pleural fluid or minimal pleural thickening. Normal-appearing left CP angle. Heart and Mediastinum: Heart size and shape are normal. No mediastinal widening or masses. No hilar or mediastinal lymphadenopathy. Bony Thorax: Bony thorax appears intact without fractures or deformities. Soft Tissues: Soft tissues overlying the chest wall are unremarkable. IMPRESSION: 1. Mild to minimal congestive changes are seen in the lung lamb. Interval improvement. 2. Possible trace of right-sided pleural effusion/pleural thickening. Interval new. 3. Left jugular CVP line in situ. Its tip is at the cavoatrial junction in an optimal position. Interval stable. Electronically signed by Christoph Dove 02-24-2025 08:24 AM ECG Additional Comments: Sinus tachycardia with frequent PAC and supraventricular complexes, cannot rule out anterior/septal infarct. PG Care Time/CCT Total # of Minutes Spent Total Time Spent with Patient: Total time spent is greater than 50% in coordination of care (as documented) at patient's floor/unit and/or counseling patient: Coding Level of Care Code 78475 INT INP/OBS CARE 2/55MIN Diagnoses Elevated troponin R79.89 Hypomagnesemia E83.42 Acute kidney injury superimposed on chronic kidney disease N17.9; N18.9 Syncope R55 HTN (hypertension) I10 Exposure to Agent Gentry Z77.098 Diabetes type 2, controlled E11.9 COPD (chronic obstructive pulmonary disease) J44.9 CKD (chronic kidney disease), stage III N18.30 Obstructive sleep apnea G47.33 Carcinoma in situ of bladder D09.0 SVT (supraventricular tachycardia) I47.10
[2025-02-24 09:03] LABS: Lyme Screen Rflx Confirmation Negative (Negative)
[2025-02-24] MEDS ORDERED: GLUCOSE 40% GEL 15 GM TUBE PO PRN (16:05)
[2025-02-24] MEDS ORDERED: MELATONIN 3 MG TAB PO PRN (16:05)
[2025-02-24] MEDS ORDERED: GLUCAGON FOR INJ 1 MG VIAL SQ PRN (16:05)
[2025-02-24] MEDS ORDERED: CARBOHYDRATES FOR HYPOGLYCEMIA PO PRN (16:05)
[2025-02-24] MEDS ORDERED: ONDANSETRON INJ 2 MG/ML 2 ML VIAL IV PRN (16:05)
[2025-02-24] MEDS ORDERED: DEXTROSE 50% 50 ML SYRINGE IV PRN (16:05)
[2025-02-24] MEDS ORDERED: GLUCOSE 10 TAB/TUBE PO PRN (16:05)
[2025-02-24 16:15] LABS: Appearance Urine Clear (Clear); Bacteria Urine Automated None Seen (None Seen); Epithelial Cell Urine Auto 0-2 /hpf (0-2); Glucose Urine UA Negative (Negative); RBC Urine Automated 0-2 /hpf (0-2); WBC Urine Automated 0-5 /hpf (0-5)
--- NOTE | 2025-02-24 16:47 | XCELERA ---
[id number]
[2025-02-24] MEDS: INSULIN ASPART PER UNIT CHARGE SC SCH (16:59)
[2025-02-24] MEDS: MIDODRINE HCL 10 MG TAB PO SCH (16:59)
[2025-02-24 18:02] LABS: INR 1.0 (0.9-1.1); Prothrombin Time 10.4 Seconds (9.0-12.0)
[2025-02-24] MEDS: METOPROLOL TARTRATE 25 MG TAB PO STA (18:05)
[2025-02-24 18:15] LABS: Partial Thromboplastin Time < 20 Seconds (21-31)
[2025-02-24] MEDS: CHOLECALCIFEROL 25 MCG (1000 UNITS) TAB PO SCH (20:00)
[2025-02-24] MEDS: APIXABAN 5 MG TABLET PO SCH (20:01)
[2025-02-24] MEDS: MYCOPHENOLATE MOFETIL 250 MG CAP PO SCH (20:01)
[2025-02-24] MEDS: ACETAMINOPHEN 325 MG TAB PO PRN (20:01)
[2025-02-24] MEDS ORDERED: PROPRANOLOL HCL 20 MG TAB PO SCH (21:00)
[2025-02-25 04:14] LABS: Hematocrit (blood only) 35.0 % (42.0-52.0); Hemoglobin 11.9 g/dL (14.0-18.0); Immature Granulocytes # (auto) 0.03 K/uL (0.01-0.20); Immature Granulocytes % (auto) 0.6 %; Mean Corpuscular Hemoglobin 29.7 pg (25.0-34.0); Mean Corpuscular Volume 87.3 fL (80.0-100.0); Platelet Count 156 K/uL (130-400); RDW Standard Deviation 41.9 fL (36.4-46.3); Red Blood Count 4.01 M/uL (4.70-6.10); White Blood Count 4.76 K/ul (4.8-10.8)
[2025-02-25 04:28] LABS: Alanine Aminotransferase 25.0 U/L (7-52); Albumin Globulin Ratio 1.5 (0.9-2); Albumin Level 3.2 gm/dl (3.4-5.0); Alkaline Phosphatase 82.0 U/L (34-104); Anion Gap 8.0 (3-11); Bilirubin,Total 0.8 mg/dl (0.2-1.0); Blood Urea Nitrogen 25.0 mg/dl (6-23); Calcium 9.0 mg/dl (8.6-10.3); Carbon Dioxide 28.0 mmol/L (21-32); Chloride 100.0 mmol/L (98-107); Creatinine Clr Calc Pharmacy 39.2 ml/min; Globulin 2.2 gm/dl (2.5-4.0); Glucose 144.0 mg/dl (70-99(Fasting)); Magnesium 2.1 mg/dl (1.7-2.4); Potassium 4.2 mmol/L (3.5-5.1); Sodium 136.0 mmol/L (136-145); Total Protein 5.4 gm/dl (6.0-8.3)
[2025-02-25] MEDS: LEVOTHYROXINE SODIUM 112 MCG TABLET PO SCH (05:31)
[2025-02-25 07:41] LABS: Hemoglobin A1C 6.5 % (4.5-5.6)
[2025-02-25] MEDS: INSULIN HUMAN NPH SC SCH (07:49)
[2025-02-25] MEDS: FLUDROCORTISONE ACETATE 0.1 MG TAB PO SCH (07:55)
[2025-02-25] MEDS: ATOVAQUONE 750 MG/5 ML UDC PO SCH (07:57)
[2025-02-25] MEDS: VITAMIN B COMPLEX TAB PO SCH (07:57)
[2025-02-25] MEDS: METOPROLOL TARTRATE 25 MG TAB PO SCH (07:58)
--- NOTE | 2025-02-25 10:49 | Electrocardiogram Report ---
Test Reason : Blood Pressure : */* mmHG Vent. Rate : 89 BPM Atrial Rate : 89 BPM P-R Int : 140 ms QRS Dur : 82 ms QT Int : 382 ms P-R-T Axes : 79 80 71 degrees QTcB Int : 464 ms Sinus rhythm Premature atrial complexes Otherwise normal ECG When compared with ECG of 24-Feb-2025 07:21, (unconfirmed) Criteria for Septal infarct are no longer Present Confirmed by Maurice Jama ([id number]) on 02/25/2025 10:49:16 AM Referred By: REFERRED SELF Confirmed By: Maurice Jama
--- NOTE | 2025-02-25 11:58 | Hospitalist Progress Note ---
Date of Service February 25, 2025 Assessment & Plan (1) Elevated troponin: (2) Hypomagnesemia: (3) Acute kidney injury superimposed on chronic kidney disease: (4) Syncope: (5) HTN (hypertension): (6) Exposure to Agent [place]: (7) Diabetes type 2, controlled: (8) COPD (chronic obstructive pulmonary disease): (9) CKD (chronic kidney disease), stage III: (10) Obstructive sleep apnea: (11) Carcinoma in situ of bladder: (12) SVT (supraventricular tachycardia): Plan # SVT # Orthostasis -Status post adenosine 6 mg x 1 with aborted SVT. Brief recurrence responded well to IV metoprolol - No recurrent significant SVT, brief runs into the 130 range - Vitals remain stable, cardiology consultation as noted below - Most consistent with intermittent treatment atrial fibrillation. Echocardiogram unremarkable. Will monitor for orthostasis through today today #Chest pain #Elevated troponin -In addition to chest pressure during these episodes patient reports-progressive stable angina type symptoms with activity/going up steps for the last several months primarily shortness of breath and chest pressure last stress test in 2019, - He was to follow-up with cardiology at the [facility] in [place] however has had difficulty coordinating those appointments for the last several months - Admit telemetry, cardiology consultation, aspirin given -Troponins normalized, echocardiogram largely unremarkable. Cardiology consult today. Repeat EKG with any evidence of chest pain. Will monitor closely with activity/exertion #Type 2 diabetes -Sliding scale initially, A1c -within goal range #HTN -monitor, stable at this time, midodrine in his med list -a completet goal #Hypothyroidism -continue synthroid, TSH still pending #HAKEEM #CKD - Baseline creatinine 1.31.5, 2.1 on admission, fluid resuscitation in the emergency department, serial monitoring - Urinalysis with small ketones and protein/casts, monitor with rehydration - Levels normalizine but not yet at baseline. #Hypomagnesemia Goal greater than 2, 1.6 on admission, 2 g IV given, oral supplement #DVT -Continue Eliquis #S/P ureteral carcinoma -tacrolimus and mycphenolate #Anxiety/depression -duloxetine #FEN - Cardiac/diabetic diet #CODE STATUS - Full code per his wishes Admission and Anticipated Discharge Date Admission Date: February 24, 2025 Subjective Doing okay this morning. No chest pain. No lower extremity edema. No dizziness orthostasis but he has not been up much and about today. We discussed the echocardiogram result. Discussed troponin. Cardiology visit pending. Physical Exam Physical Exam: General: NAD Head: NCAT ENT: oropharynx clear, MMM Neck: supple, no JVD. Lungs: clear to auscultation no wheezing or crackles Heart: Tachycardiac, Irredular; no murmur, rub or gallop. Abdomen: normal bowel sounds, soft, nontender, no distension Extremities: no pretibial edema, no erythema seen Neuro: alert, oriented CN 2- 12 intact, no dysarthria; moves extremities Results & Data Results & Data Vital Signs (Past 12 Hours) Vital Signs Temp Pulse Pulse Resp BP BP Pulse Ox 02/25/25 11:14 36.7 C 83 18 118/69 95 02/25/25 08:09 37 C 98 H 18 144/79 H 93 02/25/25 07:35 102 H 02/25/25 03:29 36.9 C 87 16 154/75 H 98 O2 Del Method 02/25/25 11:14 Room Air 02/25/25 08:09 Room Air 02/25/25 07:35 02/25/25 03:29 Room Air Laboratory Results 02/25/25 02/25/25 02/25/25 11:27 10:07 07:35 WBC RBC Hgb Hct MCV MCH MCHC RDW Std Deviation RDW Coeff of [place] Plt Count MPV Immature Gran % (Auto) Neut % (Auto) Lymph % (Auto) [place] % (Auto) Eos % (Auto) Baso % (Auto) Neut # (Auto) Lymph # (Auto) [place] # (Auto) Eos # (Auto) Baso # (Auto) Immature Gran # (Auto) PT INR APTT PTT Ratio Sodium Potassium Chloride Carbon Dioxide Anion Gap BUN Creatinine Est Cr Clr Drug Dosing eGFR BUN/Creatinine Ratio Glucose POC Glucose 213 H 155 H Estimat Average Glucose Hemoglobin A1c Calcium Magnesium Total Bilirubin AST ALT Alkaline Phosphatase Troponin I High Sens 27.9 H B-Natriuretic Peptide Total Protein Albumin Globulin Albumin/Globulin Ratio Urine Color Urine Appearance Urine pH Ur Specific [place] Urine Protein Urine Glucose (UA) Urine Ketones Urine Blood Urine Nitrite Urine Bilirubin Urine Urobilinogen Ur Leukocyte Esterase Urine WBC (Auto) Urine RBC (Auto) U Hyaline Cast (Auto) U Epithel Cells (Auto) Urine Bacteria (Auto) Hyaline Casts Urine Comment 02/25/25 02/24/25 02/24/25 03:44 Unknown 22:21 WBC 4.76 L RBC 4.01 L Hgb 11.9 L Hct 35.0 L MCV 87.3 MCH 29.7 MCHC 34.0 RDW Std Deviation 41.9 RDW Coeff of [place] 13.4 Plt Count 156 MPV 10.1 Immature Gran % (Auto) 0.6 Neut % (Auto) 70.8 Lymph % (Auto) 15.1 [place] % (Auto) 11.6 Eos % (Auto) 1.5 Baso % (Auto) 0.4 Neut # (Auto) 3.37 Lymph # (Auto) 0.72 L [place] # (Auto) 0.55 Eos # (Auto) 0.07 Baso # (Auto) 0.02 Immature Gran # (Auto) 0.03 PT INR APTT PTT Ratio Sodium 136 Potassium 4.2 Chloride 100 Carbon Dioxide 28 Anion Gap 8 BUN 25 H Creatinine 1.76 H D Est Cr Clr Drug Dosing 39.2 eGFR 40.08 BUN/Creatinine Ratio 14.2 Glucose 144 H POC Glucose Estimat Average Glucose 140 Hemoglobin A1c 6.5 H Calcium 9.0 Magnesium 2.1 Total Bilirubin 0.8 AST 27 ALT 25 Alkaline Phosphatase 82 Troponin I High Sens 32.1 H D 42.3 H B-Natriuretic Peptide 104 H Total Protein 5.4 L Albumin 3.2 L Globulin 2.2 L Albumin/Globulin Ratio 1.5 Urine Color Urine Appearance Urine pH Ur Specific [place] Urine Protein Urine Glucose (UA) Urine Ketones Urine Blood Urine Nitrite Urine Bilirubin Urine Urobilinogen Ur Leukocyte Esterase Urine WBC (Auto) Urine RBC (Auto) U Hyaline Cast (Auto) U Epithel Cells (Auto) Urine Bacteria (Auto) Hyaline Casts Urine Comment 02/24/25 02/24/25 02/24/25 17:16 16:05 15:46 WBC RBC Hgb Hct MCV MCH MCHC RDW Std Deviation RDW Coeff of [place] Plt Count MPV Immature Gran % (Auto) Neut % (Auto) Lymph % (Auto) [place] % (Auto) Eos % (Auto) Baso % (Auto) Neut # (Auto) Lymph # (Auto) [place] # (Auto) Eos # (Auto) Baso # (Auto) Immature Gran # (Auto) PT 10.4 INR 1.0 APTT < 20 L PTT Ratio < 0.7 Sodium Potassium Chloride Carbon Dioxide Anion Gap BUN Creatinine Est Cr Clr Drug Dosing eGFR BUN/Creatinine Ratio Glucose POC Glucose 158 H Estimat Average Glucose Hemoglobin A1c Calcium Magnesium Total Bilirubin AST ALT Alkaline Phosphatase Troponin I High Sens 48.5 H D B-Natriuretic Peptide Total Protein Albumin Globulin Albumin/Globulin Ratio Urine Color Dark Yellow Urine Appearance Clear Urine pH 5.0 Ur Specific [place] 1.021 Urine Protein 1+ H Urine Glucose (UA) Negative Urine Ketones 1+ H Urine Blood Negative Urine Nitrite Negative Urine Bilirubin Negative Urine Urobilinogen Negative Ur Leukocyte Esterase Negative Urine WBC (Auto) 0-5 Urine RBC (Auto) 0-2 U Hyaline Cast (Auto) 11-20 H U Epithel Cells (Auto) 0-2 Urine Bacteria (Auto) None Seen Hyaline Casts Present A Urine Comment ECG Additional Comments: Review of telemetry showed a gentle range in the 70-90 range. Occasional mild tachycardia to 102. Brief runs to as high as 130 PG Care Time/CCT Total # of Minutes Spent Total Time Spent with Patient: Total time spent is greater than 50% in coordination of care (as documented) at patient's floor/unit and/or counseling patient: Coding Level of Care Code 65985 SUB INP/OBS CARE 2/35MIN Diagnoses Elevated troponin R79.89 Hypomagnesemia E83.42 Acute kidney injury superimposed on chronic kidney disease N17.9; N18.9 Syncope R55 HTN (hypertension) I10 Exposure to Agent [place] Z77.098 Diabetes type 2, controlled E11.9 COPD (chronic obstructive pulmonary disease) J44.9 CKD (chronic kidney disease), stage III N18.30 Obstructive sleep apnea G47.33 Carcinoma in situ of bladder D09.0 SVT (supraventricular tachycardia) I47.10
[2025-02-25 12:54] LABS: Hematocrit (blood only) 35.7 % (42.0-52.0); Hemoglobin 12.1 g/dL (14.0-18.0); Immature Granulocytes # (auto) 0.05 K/uL (0.01-0.20); Immature Granulocytes % (auto) 0.7 %; Mean Corpuscular Hemoglobin 29.3 pg (25.0-34.0); Mean Corpuscular Volume 86.4 fL (80.0-100.0); Platelet Count 169 K/uL (130-400); RDW Standard Deviation 42.0 fL (36.4-46.3); Red Blood Count 4.13 M/uL (4.70-6.10); White Blood Count 7.33 K/ul (4.8-10.8)
--- NOTE | 2025-02-25 13:29 | Cardiology Consultation ---
Date of Consultation February 25, 2025 Assessment & Plan (1) SVT (supraventricular tachycardia): (2) Orthostasis: (3) Syncope: EKG performed 02/24/2025 at 6:30 AM, reviewed/interpreted independently revealed supraventricular tachycardia at [address] segment depression. Repeat tracing performed today 02/25/2025 reviewed/interpreted independently reveals sinus rhythm at 89 bpm with occasional premature atrial contractions. Complex clinical situation given very rapid supraventricular tachycardia and history of recurrent syncope in the setting of orthostatic hypotension as escalation of AV nasra blocking agents is limited due to the presence of the orthostatic hypotension. He is not a good candidate for amiodarone therapy given his past liver injury from Keytruda. He is not a good candidate for digoxin given his renal insufficiency. He has been treated with propranolol 20 mg twice daily presumably for the treatment of both his chronic tremor and atrial arrhythmias but it has not been effective. Given the severity of the tachycardia last evening, I recommend discontinuing propranolol in favor of metoprolol to tartrate 12.5 mg twice daily and if he tolerates this from a dizziness standpoint we will change it to metoprolol succinate 12.5 mg twice daily. Mild troponin elevation is likely related to myocardial strain in the setting of the tachycardia. Echocardiogram is reassuring with no regional wall motion abnormalities. Continue Eliquis for DVT/PE. Edwin Michelle DO History of Present Illness Attending Physician: Chilo Callahan MD History of Present Illness Mr Mahan is a 74-year-old male seen in cardiology consultation per the request of Dr. Callahan for the evaluation of supraventricular tachycardia and chest discomfort. Patient with previously seen by the undersigned on a single visit in Jul, 2024 having presented with a syncopal episode at that time. It was found that he had orthostatic hypotension. A tremor was noted as well as sinus tachycardia and propranolol was resumed at discharge. The patient states that he lives in [place] however his two daughters live in [place]. Upon discharge from this institution in July, he established with the [facility] in [place] and he believes he may have also seen cardiology there. At present both of his daughters are out of the country on a cruise but they will return within a week. The patient was staying with his brother in [place]. He is a somewhat poor historian but he describes having had another syncopal episode about a week ago. Yesterday he describes his most significant symptom was profound weakness. Although he described to other providers yesterday that he had had transient chest discomfort, he denies such symptoms during my interview. On arrival to the emergency department yesterday he intermittent narrow complex tachycardia with rate in the range of 160 to upwards of 190 bpm observed which I reviewed on the patient's telemetry. He ultimately received a dose of adenosine with conversion to sinus tachycardia. Sinus rhythm at around 100 bpm noted earlier last evening. The patient subsequently received metoprolol to tartrate 12.5 mg last night and again this morning in sinus rhythm in the 80s currently present. Patient denies any current symptoms. Since his visit here in July, he reports having been admitted in [facility] and per his description he was found to have multi pulmonary embolism as well as a lower extremity DVT prompting him to be treated with Eliquis which is a new medication on his list compared to his previous admission in July. 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 Mother lived to be 93. Social History: Reformed smoker having quit at the age of 62 after smoking 50 years (started the age of 12). No significant alcohol use. No illegal drug use. Lives with his brother and [id number] and snowoe. Two daughters in [place]. Retired, previously working for [employer]. Allergies Allergy/AdvReac Type Severity Reaction Status Date / Time Penicillins AdvReac Severe Syncope Verified 07/25/24 20:19 sulfamethoxazole AdvReac Intermediate "Elevated Verified 07/25/24 20:19 [From Bactrim] Liver readings" trimethoprim [From Bactrim] AdvReac Intermediate "Elevated Verified 07/25/24 20:19 Liver readings" olodaterol AdvReac Mild sore throat Verified 07/25/24 20:19 [From Stiolto Respimat] tiotropium AdvReac Mild sore throat Verified 07/25/24 20:19 [From Stiolto Respimat] lisinopril AdvReac Unknown was told Verified 07/25/24 20:19 not take due to diabetes Home Medications Medication Instructions Recorded Confirmed Type allopurinol 100 mg tablet 100 mg PO QAM 03/14/22 02/24/25 History cholecalciferol (vitamin D3) 25 25 mcg PO BID 03/14/22 02/24/25 History mcg (1,000 unit) capsule insulin glargine 100 unit/mL (3 10 unit subcut QAM 04/17/22 02/24/25 History mL) subcutaneous pen duloxetine 30 mg capsule,delayed 30 mg PO DAILY 07/25/24 02/24/25 History release sprinkle fludrocortisone 0.1 mg tablet 0.1 mg PO DAILY 07/25/24 02/24/25 History insulin aspart U-100 100 unit/mL 0 unit subcut TIDM 07/25/24 02/24/25 History (3 mL) subcutaneous pen (Novolog FlexPen U-100 Insulin aspart) midodrine 10 mg tablet 10 mg PO TID 07/25/24 02/24/25 History vitamin B complex-vitamin C-folic 1 tab PO DAILY 07/25/24 02/24/25 History acid 0.8 mg tablet (Renal Vitamin) levothyroxine 112 mcg tablet 112 mcg PO DAILYBB #30 tabs 07/28/24 02/24/25 Rx (Synthroid) apixaban 5 mg tablet 5 mg PO AMHS 02/24/25 02/24/25 History atovaquone 750 mg/5 mL oral 1,500 mg PO QAM 02/24/25 02/24/25 History suspension insulin NPH isoph U-100 human 100 0 unit subcut DIRECTED PRN 02/24/25 02/24/25 History unit/mL subcutaneous suspension PREDNISONE (Humulin N NPH U-100 Insulin (isophane susp)) mycophenolate mofetil 500 mg tablet 1,000 mg PO AMHS 02/24/25 02/24/25 History prednisolone 5 mg tablet 15 mg PO QAM 02/24/25 02/24/25 History propranolol 10 mg tablet 20 mg PO AMHS 02/24/25 02/24/25 History tacrolimus 1 mg tablet,extended 1 mg PO AMHS 02/24/25 02/24/25 History release 24 hr Patient History Medical History Hematuria Carcinoma in situ of bladder Recurrent Starting mid 03/2024, stopped immunotherapy due to issues with liver and pancreas, "currently on prednisone to help with this" Lumbar herniated disc Chronic back pain R/t injury when he was in the as he fell on his back HTN (hypertension) Malignant neoplasm of kidney 2018 [facility] Left nephrectomy and currently undergoing cysto procedures q 3months Exposure to Agent [place] History of chemotherapy 2018 - administered in [facility] 2023- immunotherapy for bladder cancer and tumor in right kidney (stopped mid 03/2024 "due to issues with liver and pancreas") Bilateral hearing loss Hearing Aids (doesn't use d/t tinnitus per patient) Diabetes type 2, controlled IDDM Obstructive sleep apnea No longer uses CPAP Gout COPD (chronic obstructive pulmonary disease) CKD (chronic kidney disease), stage III Bilateral primary osteoarthritis of hip Surgical History S/P cystoscopy with ureteral stent placement 02/2024, stent exchange Hx of toe surgery (2023) R/t ingrown toenails Port-A-Cath in place (12/05/23) Insertion MRI Compatible Access Port History of nephrectomy, left (2017) Cancer and kidney was removed in 2018 Hx of nasal septoplasty (Unknown) due to deviated septum H/O colonoscopy H/O foot surgery Right - Big Toe History of removal of Port-a-Cath 2018 H/O cystoscopy multiple (Every 3 months) Currently has stent in place History of kidney surgery (2023) Left kidney removal 2018 r/t cancer "Laser to my Right Kidney for cancer 2023" Family History Brother Clotting disorder Diabetes Social History Smoking Status: Never smoker Tobacco Type: Cigarettes Age Started Using Tobacco: 12; Age Quit Using Tobacco: 65; Second Hand Exposure: Yes (hx growing up); Do You Dip or Chew Tobacco: No; Hx Alcohol Use: No Hx Substance Use: No Preferred Language: Danish Communication Ability: Effective Cigar Head Pegger Required: No Beliefs That Will Affect Care: None marital status: Current Living Situation: Family current occupational status: retired How many Children do You have: 2 Other Information That Helps Us Care for You: No Feels Safe at Home: Yes Safety Concerns: Feels Safe At This Time Diet: diabetic during the past year weight has: remained stable Assistive Devices: Cane Review of Systems Review of Systems: All systems reviewed & are unremarkable except as noted in HPI & below Physical Exam Physical Exam: General: no acute distress and stated age Eyes: conjunctiva are pink and non-injected, sclera clear Neck: normal jugular venous pulse, no hepatojugular reflux Chest: normal shape and normal respiratory effort Lungs: clear to auscultation and percussion Cardiac Exam: - regular heart sounds, no murmurs, rubs, or gallops, no jugular venous distention Abdomen: abdomen soft, non-tender, no abnormal masses and no hepatosplenomegaly Extremities: no edema and no cyanosis Neuro:awake, conversant, follows commands, no focal motor deficits Psych: appropriate affect and insight. Results & Data Vital Signs (Past 12 Hours) Vital Signs Temp Pulse Pulse Resp BP BP Pulse Ox 02/25/25 11:14 36.7 C 83 18 118/69 95 02/25/25 08:09 37 C 98 H 18 144/79 H 93 02/25/25 07:35 102 H 02/25/25 03:29 36.9 C 87 16 154/75 H 98 O2 Del Method 02/25/25 11:14 Room Air 02/25/25 08:09 Room Air 02/25/25 07:35 02/25/25 03:29 Room Air Diagnostic Findings Summary of transthoracic echocardiogram performed 02/24/2025: Normal left ventricular systolic function, LVEF in the range of 60 to 65%, grade 1 diastolic dysfunction, no significant valvular heart disease. A small anterior pericardial effusion is present without tamponade. Coding Level of Care Code 57253 IN/OBS CONSULT LVL 4,60M Diagnoses SVT (supraventricular tachycardia) I47.10 Orthostasis I95.1 Syncope R55
[2025-02-25] MEDS: TACROLIMUS 1 MG CAP PO SCH (20:27)
[2025-02-26 06:20] LABS: Hematocrit (blood only) 31.8 % (42.0-52.0); Hemoglobin 11.0 g/dL (14.0-18.0); Immature Granulocytes # (auto) 0.02 K/uL (0.01-0.20); Immature Granulocytes % (auto) 0.5 %; Mean Corpuscular Hemoglobin 30.0 pg (25.0-34.0); Mean Corpuscular Volume 86.6 fL (80.0-100.0); Platelet Count 145 K/uL (130-400); RDW Standard Deviation 41.4 fL (36.4-46.3); Red Blood Count 3.67 M/uL (4.70-6.10); White Blood Count 4.06 K/ul (4.8-10.8)
[2025-02-26 06:43] LABS: Alanine Aminotransferase 24.0 U/L (7-52); Albumin Globulin Ratio 1.7 (0.9-2); Albumin Level 3.2 gm/dl (3.4-5.0); Alkaline Phosphatase 74.0 U/L (34-104); Anion Gap 10.0 (3-11); Bilirubin,Total 0.6 mg/dl (0.2-1.0); Blood Urea Nitrogen 24.0 mg/dl (6-23); Calcium 9.0 mg/dl (8.6-10.3); Carbon Dioxide 26.0 mmol/L (21-32); Chloride 100.0 mmol/L (98-107); Creatinine Clr Calc Pharmacy 43.3 ml/min; Globulin 1.9 gm/dl (2.5-4.0); Glucose 161.0 mg/dl (70-99(Fasting)); Magnesium 2.0 mg/dl (1.7-2.4); Potassium 3.7 mmol/L (3.5-5.1); Sodium 136.0 mmol/L (136-145); Total Protein 5.1 gm/dl (6.0-8.3)
[2025-02-26 06:57] LABS: Thyroid Stimulating Hormone 3.278 uIu/ml (0.300-4.500)
--- NOTE | 2025-02-26 10:14 | Electrocardiogram Report ---
Test Reason : Blood Pressure : */* mmHG Vent. Rate : 83 BPM Atrial Rate : 83 BPM P-R Int : 132 ms QRS Dur : 78 ms QT Int : 398 ms P-R-T Axes : 79 71 73 degrees QTcB Int : 467 ms Sinus rhythm with Premature atrial complexes Possible Left atrial enlargement Incomplete right bundle branch block Septal infarct (cited on or before 24-Feb-2025) Abnormal ECG When compared with ECG of 24-Feb-2025 06:54, (unconfirmed) HR has decreased Supraventricular tachycardia is no longer Present Confirmed by Maurice Jama ([id number]) on 02/26/2025 10:14:26 AM Referred By: REFERRED SELF Confirmed By: Maurice Jama
--- NOTE | 2025-02-26 10:17 | Electrocardiogram Report ---
Test Reason : Blood Pressure : */* mmHG Vent. Rate : 149 BPM Atrial Rate : 89 BPM P-R Int : 156 ms QRS Dur : 112 ms QT Int : 334 ms P-R-T Axes : 60 85 71 degrees QTcB Int : 526 ms Supraventricular tachycardia , possibly sinus Incomplete right bundle branch block Septal infarct , age undetermined Abnormal ECG When compared with ECG of 24-Feb-2025 06:42, (unconfirmed) HR has increased Confirmed by Maurice Jama ([id number]) on 02/26/2025 10:17:26 AM Referred By: REFERRED SELF Confirmed By: Maurice Jama
--- NOTE | 2025-02-26 10:18 | Electrocardiogram Report ---
Test Reason : Blood Pressure : */* mmHG Vent. Rate : 113 BPM Atrial Rate : 113 BPM P-R Int : 120 ms QRS Dur : 76 ms QT Int : 326 ms P-R-T Axes : 85 106 85 degrees QTcB Int : 447 ms Sinus tachycardia with Premature atrial complexes Possible Left atrial enlargement Incomplete right bundle branch block Abnormal ECG When compared with ECG of 24-Feb-2025 06:30, (unconfirmed) Premature atrial complexes are now Present Vent. rate has decreased by 66 bpm Confirmed by Maurice Jama ([id number]) on 02/26/2025 10:18:01 AM Referred By: REFERRED SELF Confirmed By: Maurice Jama
--- NOTE | 2025-02-26 10:20 | Electrocardiogram Report ---
Test Reason : Blood Pressure : */* mmHG Vent. Rate : 179 BPM Atrial Rate : * BPM P-R Int : * ms QRS Dur : 74 ms QT Int : 280 ms P-R-T Axes : * 185 80 degrees QTcB Int : 483 ms Supraventricular tachycardia Right superior axis deviation Possible Anteroseptal infarct (cited on or before 24-Feb-2025) Abnormal ECG When compared with ECG of 24-Feb-2025 06:17, (unconfirmed) HR has increased T wave inversion less evident in Anterior leads Confirmed by Maurice Jama ([id number]) on 02/26/2025 10:19:34 AM Referred By: REFERRED SELF Confirmed By: Maurice Jama
--- NOTE | 2025-02-26 10:21 | Electrocardiogram Report ---
Test Reason : Blood Pressure : */* mmHG Vent. Rate : 146 BPM Atrial Rate : 146 BPM P-R Int : 126 ms QRS Dur : 74 ms QT Int : 344 ms P-R-T Axes : 86 117 87 degrees QTcB Int : 536 ms Poor data quality, interpretation may be adversely affected Sinus tachycardia with Premature supraventricular complexes Right axis deviation Cannot rule out Anteroseptal infarct , age undetermined Abnormal ECG When compared with ECG of 28-Jul-2024 04:02, Premature supraventricular complexes are now Present Vent. rate has increased by 83 bpm Minimal criteria for Anteroseptal infarct are now Present T wave inversion now evident in Anterior leads Confirmed by Maurice Jama ([id number]) on 02/26/2025 10:20:59 AM Referred By: REFERRED SELF Confirmed By: Maurice Jama
--- NOTE | 2025-02-26 13:39 | Cardiology Progress Note ---
Date of Service February 26, 2025 Assessment & Plan (1) SVT (supraventricular tachycardia): (2) Orthostasis: (3) Syncope: Plan: EKG performed 02/24/2025 at 6:30 AM, reviewed/interpreted independently revealed supraventricular tachycardia at [address] segment depression. Repeat tracing performed today 02/25/2025 reviewed/interpreted independently reveals sinus rhythm at 89 bpm with occasional premature atrial contractions. Echocardiogram performed 02/24/2025 revealed normal left ventricular wall motion, LVEF in the range of 66-65%, no significant valvular heart disease. Grade 1 diastolic dysfunction. Complex clinical situation given very rapid supraventricular tachycardia and history of recurrent syncope in the setting of orthostatic hypotension as escalation of AV nasra blocking agents is limited due to the presence of the orthostatic hypotension. He is not a good candidate for amiodarone therapy given his past liver injury from Keytruda. He is not a good candidate for digoxin given his renal insufficiency. He has been treated with propranolol 20 mg twice daily presumably for the treatment of both his chronic tremor and atrial arrhythmias but it has not been effective. Mild troponin elevation is likely related to myocardial strain in the setting of the tachycardia. Echocardiogram is reassuring with no regional wall motion abnormalities. Given the severity of his tachycardia, I recommend replacing propranolol 20 mg twice daily with metoprolol succinate 12.5 mg twice daily. Low-dose favored to start given his history of orthostatic intolerance requiring chronic midodrine therapy. Future considerations could include treatment with primidone for essential tremor, but this is likely best performed with the input of neurology and in setting where close outpatient follow-up with such provider would be available. At present has follow-up providers in [place]. Continue Eliquis for DVT/PE. No additional cardiac testing felt to be indicated at present. Cardiology to sign off. Please call with questions or concerns. Edwin Michelle, Admission and Anticipated Discharge Date Admission Date: February 24, 2025 Subjective Patient seen in cardiology follow up. He is sitting in the bedside chair and feels well. Notes a very mild 2/2 intensity chest pain with deep inspiration. Telemetry reveals sinus rhythm in the 70s without any recurrent tachycardia. Physical Exam Physical Exam: Temp Pulse Resp BP Pulse Ox O2 Del Method 36.7 C 82 18 114/67 97 Room Air 02/26/25 12:12 02/26/25 12:12 02/26/25 12:12 02/26/25 12:12 02/26/25 12:12 02/26/25 12:12 General: no acute distress and stated age Eyes: conjunctiva are pink and non-injected, sclera clear Neck: normal jugular venous pulse, no hepatojugular reflux Chest: normal shape and normal respiratory effort Lungs: clear to auscultation and percussion Cardiac Exam: - regular heart sounds, no murmurs, rubs, or gallops, no jugular venous distention Abdomen: abdomen soft, non-tender, no abnormal masses and no hepatosplenomegaly Extremities: no edema and no cyanosis Neuro:awake, conversant, follows commands, no focal motor deficits Psych: appropriate affect and insight. Results & Data Vital Signs (Past 12 Hours) Vital Signs Temp Pulse Resp BP Pulse Ox O2 Del Method 02/26/25 12:12 36.7 C 82 18 114/67 97 Room Air 02/26/25 07:31 36.7 C 69 19 130/72 96 Room Air 02/26/25 03:27 36.5 C 68 20 125/67 96 Room Air PG Care Time/CCT Total # of Minutes Spent Total Time Spent with Patient: Total time spent is greater than 50% in coordination of care (as documented) at patient's floor/unit and/or counseling patient: Coding Level of Care Code 42933 SUB INP/OBS CARE 3/50MIN Diagnoses SVT (supraventricular tachycardia) I47.10 Orthostasis I95.1 Syncope R55
--- NOTE | 2025-02-26 17:25 | History & Physical Report ---
Date of Service February 26, 2025 Assessment & Plan (1) Elevated troponin: (2) Hypomagnesemia: (3) Acute kidney injury superimposed on chronic kidney disease: (4) Syncope: (5) HTN (hypertension): (6) Exposure to Agent [place]: (7) Diabetes type 2, controlled: (8) COPD (chronic obstructive pulmonary disease): (9) CKD (chronic kidney disease), stage III: (10) Obstructive sleep apnea: (11) Carcinoma in situ of bladder: (12) SVT (supraventricular tachycardia): Plan # SVT # Orthostasis -Status post adenosine 6 mg x 1 with aborted SVT. Brief recurrence responded well to IV metoprolol - No recurrent significant SVT, brief runs into the 130 range - Vitals remain stable, cardiology consultation as noted below - Most consistent with intermittent treatment atrial fibrillation. Echocardiogram unremarkable. Will monitor for orthostasis through today today #Chest pain #Elevated troponin -In addition to chest pressure during these episodes patient reports-progressive stable angina type symptoms with activity/going up steps for the last several months primarily shortness of breath and chest pressure last stress test in 2019, - He was to follow-up with cardiology at the [facility] in [place] however has had difficulty coordinating those appointments for the last several months - Admit telemetry, cardiology consultation, aspirin given -Troponins normalized, echocardiogram largely unremarkable. Cardiology consult today. Repeat EKG with any evidence of chest pain. Will monitor closely with activity/exertion #Type 2 diabetes -Sliding scale initially, A1c -within goal range #HTN -monitor, stable at this time, midodrine in his med list -a completet goal #Hypothyroidism -continue synthroid, TSH still pending #HAKEEM #CKD - Baseline creatinine 1.31.5, 2.1 on admission, fluid resuscitation in the emergency department, serial monitoring - Urinalysis with small ketones and protein/casts, monitor with rehydration - Levels normalizine but not yet at baseline. #Hypomagnesemia Goal greater than 2, 1.6 on admission, 2 g IV given, oral supplement #DVT -Continue Eliquis #S/P ureteral carcinoma -tacrolimus and mycphenolate #Anxiety/depression -duloxetine #FEN - Cardiac/diabetic diet #CODE STATUS - Full code per his wishes Admission and Anticipated Discharge Date Admission Date: February 24, 2025 History of Present Illness Primary Care Provider: Reji Jarrett MD Allergies Allergy/AdvReac Type Severity Reaction Status Date / Time Penicillins AdvReac Severe Syncope Verified 07/25/24 20:19 sulfamethoxazole AdvReac Intermediate "Elevated Verified 07/25/24 20:19 [From Bactrim] Liver readings" trimethoprim [From Bactrim] AdvReac Intermediate "Elevated Verified 07/25/24 20:19 Liver readings" olodaterol AdvReac Mild sore throat Verified 07/25/24 20:19 [From Stiolto Respimat] tiotropium AdvReac Mild sore throat Verified 07/25/24 20:19 [From Stiolto Respimat] lisinopril AdvReac Unknown was told Verified 07/25/24 20:19 not take due to diabetes Home Medications Medication Instructions Recorded Confirmed Type allopurinol 100 mg tablet 100 mg PO QAM 03/14/22 02/24/25 History cholecalciferol (vitamin D3) 25 25 mcg PO BID 03/14/22 02/24/25 History mcg (1,000 unit) capsule insulin glargine 100 unit/mL (3 10 unit subcut QAM 04/17/22 02/24/25 History mL) subcutaneous pen duloxetine 30 mg capsule,delayed 30 mg PO DAILY 07/25/24 02/24/25 History release sprinkle fludrocortisone 0.1 mg tablet 0.1 mg PO DAILY 07/25/24 02/24/25 History insulin aspart U-100 100 unit/mL 0 unit subcut TIDM 07/25/24 02/24/25 History (3 mL) subcutaneous pen (Novolog FlexPen U-100 Insulin aspart) midodrine 10 mg tablet 10 mg PO TID 07/25/24 02/24/25 History vitamin B complex-vitamin C-folic 1 tab PO DAILY 07/25/24 02/24/25 History acid 0.8 mg tablet (Renal Vitamin) levothyroxine 112 mcg tablet 112 mcg PO DAILYBB #30 tabs 07/28/24 02/24/25 Rx (Synthroid) apixaban 5 mg tablet 5 mg PO AMHS 02/24/25 02/24/25 History atovaquone 750 mg/5 mL oral 1,500 mg PO QAM 02/24/25 02/24/25 History suspension insulin NPH isoph U-100 human 100 0 unit subcut DIRECTED PRN 02/24/25 02/24/25 History unit/mL subcutaneous suspension PREDNISONE (Humulin N NPH U-100 Insulin (isophane susp)) mycophenolate mofetil 500 mg tablet 1,000 mg PO AMHS 02/24/25 02/24/25 History prednisolone 5 mg tablet 15 mg PO QAM 02/24/25 02/24/25 History propranolol 10 mg tablet 20 mg PO AMHS 02/24/25 02/24/25 History tacrolimus 1 mg tablet,extended 1 mg PO AMHS 02/24/25 02/24/25 History release 24 hr Past Med/Surg History Problem List SVT (supraventricular tachycardia) Elevated troponin (Acute) Hypomagnesemia (Acute) Acute dehydration (Acute) Acute kidney injury superimposed on chronic kidney disease (Acute) Dizziness (Acute) Dysrhythmia (Acute) Adrenal insufficiency Orthostasis Syncope Elevated procalcitonin (Acute) Elevated lactic acid level (Acute) Transaminitis (Acute) Non-ST elevation ND (NSTEMI) (Acute) Syncope and collapse (Acute) Medical History Hematuria Carcinoma in situ of bladder Recurrent Starting mid 03/2024, stopped immunotherapy due to issues with liver and pancreas, "currently on prednisone to help with this" Lumbar herniated disc Chronic back pain R/t injury when he was in the as he fell on his back HTN (hypertension) Malignant neoplasm of kidney 2018 [facility] Left nephrectomy and currently undergoing cysto procedures q 3months Exposure to Agent [place] [employer] History of chemotherapy 2018 - administered in [facility] 2023- immunotherapy for bladder cancer and tumor in right kidney (stopped mid 03/2024 "due to issues with liver and pancreas") Bilateral hearing loss Hearing Aids (doesn't use d/t tinnitus per patient) Diabetes type 2, controlled IDDM Obstructive sleep apnea No longer uses CPAP Gout COPD (chronic obstructive pulmonary disease) CKD (chronic kidney disease), stage III Bilateral primary osteoarthritis of hip Surgical History S/P cystoscopy with ureteral stent placement 02/2024, stent exchange Hx of toe surgery (2023) R/t ingrown toenails Port-A-Cath in place (12/05/23) Insertion MRI Compatible Access Port History of nephrectomy, left (2017) Cancer and kidney was removed in 2018 Hx of nasal septoplasty (Unknown) due to deviated septum H/O colonoscopy H/O foot surgery Right - Big Toe History of removal of Port-a-Cath 2018 H/O cystoscopy multiple (Every 3 months) Currently has stent in place History of kidney surgery (2023) Left kidney removal 2017 r/t cancer "Laser to my Right Kidney for cancer 2023" Family History Brother Clotting disorder Diabetes Social History Smoking Status: Never smoker Tobacco Type: Cigarettes Age Started Using Tobacco: 12; Age Quit Using Tobacco: 65; Second Hand Exposure: Yes (hx growing up); Do You Dip or Chew Tobacco: No; Hx Alcohol Use: No Hx Substance Use: No Preferred Language: Slovak Communication Ability: Effective 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 Required: No Beliefs That Will Affect Care: None marital status: Current Living Situation: Family current occupational status: retired How many Children do You have: 2 Other Information That Helps Us Care for You: No Feels Safe at Home: Yes Safety Concerns: Feels Safe At This Time Diet: diabetic during the past year weight has: remained stable Assistive Devices: Walker Results & Data Results & Data Vital Signs (Past 12 Hours) Vital Signs Temp Pulse Resp BP Pulse Ox O2 Del Method 02/26/25 16:31 36.7 C 65 18 142/84 H 97 Room Air 02/26/25 12:12 36.7 C 82 18 114/67 97 Room Air 02/26/25 07:31 36.7 C 69 19 130/72 96 Room Air Code Status & VTE Plan VTE Prophylaxis Plan VTE Prophylaxis will be ordered: Yes PG Care Time/CCT Total # of Minutes Spent Total Time Spent with Patient: Total time spent is greater than 50% in coordination of care (as documented) at patient's floor/unit and/or counseling patient: Coding Diagnoses Elevated troponin R79.89 Hypomagnesemia E83.42 Acute kidney injury superimposed on chronic kidney disease N17.9; N18.9 Syncope R55 HTN (hypertension) I10 Exposure to Agent [place] Z77.098 Diabetes type 2, controlled E11.9 COPD (chronic obstructive pulmonary disease) J44.9 CKD (chronic kidney disease), stage III N18.30 Obstructive sleep apnea G47.33 Carcinoma in situ of bladder D09.0 SVT (supraventricular tachycardia) I47.10
--- NOTE | 2025-02-26 17:32 | Hospitalist Progress Note ---
Date of Service February 26, 2025 Assessment & Plan (1) Elevated troponin: (2) Hypomagnesemia: (3) Acute kidney injury superimposed on chronic kidney disease: (4) Syncope: (5) HTN (hypertension): (6) Exposure to Agent [place]: (7) Diabetes type 2, controlled: (8) COPD (chronic obstructive pulmonary disease): (9) CKD (chronic kidney disease), stage III: (10) Obstructive sleep apnea: (11) Carcinoma in situ of bladder: (12) SVT (supraventricular tachycardia): Plan # SVT # Orthostasis -Status post adenosine 6 mg x 1 with aborted SVT in ED. Brief recurrence responded well to IV metoprolol - No recurrent significant SVT, brief runs into the 130 range - Most consistent with intermittent treatment atrial fibrillation. Echocardiogram unremarkable. Will monitor for orthostasis through today today - DC Propranolol, start metoprolol succinate #Chest pain #Elevated troponin -In addition to chest pressure during these episodes patient reports-progressive stable angina type symptoms with activity/going up steps for the last several m onths primarily shortness of breath and chest pressure last stress test in 2019, - He was to follow-up with cardiology at the [facility] in [place] however has had difficulty coordinating those appointments for the last several months - Admit telemetry, cardiology consultation, aspirin given -Troponins normalized, echocardiogram largely unremarkable. Cardiology consult today. Repeat EKG with any evidence of chest pain. Will monitor closely with activity/exertion #Type 2 diabetes -Sliding scale initially, A1c -within goal range #Minor Trauma -Negative Tertiary Survery #HTN -monitor, stable at this time, midodrine in his med list -a completet goal #Hypothyroidism -continue synthroid, TSH still pending #HAKEEM #CKD - Baseline creatinine 1.31.5, 2.1 on admission, fluid resuscitation in the emergency department, serial monitoring - Urinalysis with small ketones and protein/casts, monitor with rehydration - Levels normalizing but not yet at baseline. #Hypomagnesemia Goal greater than 2, 1.6 on admission, 2 g IV given, oral supplement - AM Labs #DVT -Continue Eliquis #S/P ureteral carcinoma -tacrolimus and mycphenolate #Anxiety/depression -duloxetine #FEN - Cardiac/diabetic diet #CODE STATUS - Full code per his wishes Admission and Anticipated Discharge Date Admission Date: February 24, 2025 Subjective Doing okay this morning. No palpitations, no chest pain or shortness of breath. No PND or orthopnea. Has not been up walking around the estes much as of yet. Has yet to meet with PT and OT today. No other new events or concerns per nursing staff. No problem with intake bowel or bladder function per patient, Physical Exam Physical Exam: Neurologic: GCS 15 ([id number]), no focal motor or sensory deficits HEENT Scalp: no lacerations, bruising, or swelling Facial bones: no instability, bruising, or swelling Eyes: PERRLA, EOMI Ears/Nose: no bleeding or clear drainage Oral cavity: Intact dentition, no malocclusion, intact oral mucosa Trachea: Midline, no subcutaneous emphysema Soft tissue of neck: No ecchymosis, laceration, or swelling Chest: RRR No MRG No bruising, or crepitus; ribs and sternum stable with no focal tenderness or deformity LUNGS: CTAB Abdomen: Soft, non-tender, non-distended, no ecchymosis or seatbelt sign Pelvis: Intact with no crepitus or deformity, no tenderness at pubic symphysis Extremities: contusion on left wrist, healing, overlying dressing CDI, otherwise no deformity or tenderness, normal range of motion, sensation and motor function grossly intact Vascular: 2+ radial, femoral, DP/PT pulses Back: No ecchymosis, lacerations, or abrasions Spine: No cervical, thoracic, or lumbar tenderness Results & Data Results & Data Vital Signs (Past 12 Hours) Vital Signs Temp Pulse Resp BP Pulse Ox O2 Del Method 02/26/25 16:31 36.7 C 65 18 142/84 H 97 Room Air 02/26/25 12:12 36.7 C 82 18 114/67 97 Room Air 02/26/25 07:31 36.7 C 69 19 130/72 96 Room Air Laboratory Results 02/26/25 02/26/25 02/26/25 16:27 11:22 07:27 WBC RBC Hgb Hct MCV MCH MCHC RDW Std Deviation RDW Coeff of [place] Plt Count MPV Immature Gran % (Auto) Neut % (Auto) Lymph % (Auto) Jennings % (Auto) Eos % (Auto) Baso % (Auto) Neut # (Auto) Lymph # (Auto) Jennings # (Auto) Eos # (Auto) Baso # (Auto) Immature Gran # (Auto) Sodium Potassium Chloride Carbon Dioxide Anion Gap BUN Creatinine Est Cr Clr Drug Dosing eGFR BUN/Creatinine Ratio Glucose POC Glucose 169 H 211 H 168 H Calcium Magnesium Total Bilirubin AST ALT Alkaline Phosphatase Total Protein Albumin Globulin Albumin/Globulin Ratio TSH 02/26/25 02/25/25 05:37 20:18 WBC 4.06 L RBC 3.67 L Hgb 11.0 L Hct 31.8 L MCV 86.6 MCH 30.0 MCHC 34.6 RDW Std Deviation 41.4 RDW Coeff of K[place]um 13.2 Plt Count 145 MPV 10.8 Immature Gran % (Auto) 0.5 Neut % (Auto) 69.2 Lymph % (Auto) 16.5 Jennings % (Auto) 12.6 Eos % (Auto) 1.0 Baso % (Auto) 0.2 Neut # (Auto) 2.81 Lymph # (Auto) 0.67 L Jennings # (Auto) 0.51 Eos # (Auto) 0.04 Baso # (Auto) 0.01 Immature Gran # (Auto) 0.02 Sodium 136 Potassium 3.7 Chloride 100 Carbon Dioxide 26 Anion Gap 10 BUN 24 H Creatinine 1.68 H Est Cr Clr Drug Dosing 43.3 eGFR 42.38 BUN/Creatinine Ratio 14.3 Glucose 161 H POC Glucose 260 H Calcium 9.0 Magnesium 2.0 Total Bilirubin 0.6 AST 23 ALT 24 Alkaline Phosphatase 74 Total Protein 5.1 L Albumin 3.2 L Globulin 1.9 L Albumin/Globulin Ratio 1.7 TSH 3.278 PG Care Time/CCT Total # of Minutes Spent Total Time Spent with Patient: Total time spent is greater than 50% in coordination of care (as documented) at patient's floor/unit and/or counseling patient: Coding Level of Care Code 91769 SUB INP/OBS CARE 2/35MIN Diagnoses Elevated troponin R79.89 Hypomagnesemia E83.42 Acute kidney injury superimposed on chronic kidney disease N17.9; N18.9 Syncope R55 HTN (hypertension) I10 Exposure to Agent [place] Z77.098 Diabetes type 2, controlled E11.9 COPD (chronic obstructive pulmonary disease) J44.9 CKD (chronic kidney disease), stage III N18.30 Obstructive sleep apnea G47.33 Carcinoma in situ of bladder D09.0 SVT (supraventricular tachycardia) I47.10
[2025-02-27 07:56] LABS: Hematocrit (blood only) 34.2 % (42.0-52.0); Hemoglobin 11.6 g/dL (14.0-18.0); Immature Granulocytes # (auto) 0.04 K/uL (0.01-0.20); Immature Granulocytes % (auto) 0.8 %; Mean Corpuscular Hemoglobin 29.4 pg (25.0-34.0); Mean Corpuscular Volume 86.6 fL (80.0-100.0); Platelet Count 177 K/uL (130-400); RDW Standard Deviation 41.8 fL (36.4-46.3); Red Blood Count 3.95 M/uL (4.70-6.10); White Blood Count 5.13 K/ul (4.8-10.8)
[2025-02-27 08:11] LABS: Alanine Aminotransferase 24.0 U/L (7-52); Albumin Globulin Ratio 1.8 (0.9-2); Albumin Level 3.4 gm/dl (3.4-5.0); Alkaline Phosphatase 85.0 U/L (34-104); Anion Gap 9.0 (3-11); Bilirubin,Total 0.5 mg/dl (0.2-1.0); Blood Urea Nitrogen 26.0 mg/dl (6-23); Calcium 9.6 mg/dl (8.6-10.3); Carbon Dioxide 30.0 mmol/L (21-32); Chloride 98.0 mmol/L (98-107); Creatinine Clr Calc Pharmacy 48.9 ml/min; Globulin 1.9 gm/dl (2.5-4.0); Glucose 150.0 mg/dl (70-99(Fasting)); Magnesium 1.9 mg/dl (1.7-2.4); Potassium 3.7 mmol/L (3.5-5.1); Sodium 137.0 mmol/L (136-145); Total Protein 5.3 gm/dl (6.0-8.3)
--- NOTE | 2025-02-27 15:17 | Hospitalist Progress Note ---
Date of Service February 27, 2025 Assessment & Plan (1) Elevated troponin: (2) Hypomagnesemia: (3) Acute kidney injury superimposed on chronic kidney disease: (4) Syncope: (5) HTN (hypertension): (6) Exposure to Agent [place]: (7) Diabetes type 2, controlled: (8) COPD (chronic obstructive pulmonary disease): (9) CKD (chronic kidney disease), stage III: (10) Obstructive sleep apnea: (11) Carcinoma in situ of bladder: (12) SVT (supraventricular tachycardia): Plan # SVT # Orthostasis -Status post adenosine 6 mg x 1 with aborted SVT in ED. Brief recurrence responded well to IV metoprolol - No recurrent significant SVT, brief runs into the 130 range - Most consistent with intermittent treatment atrial fibrillation. Echocardiogram unremarkable. Will monitor for orthostasis through today today - DC Propranolol, start metoprolol succinate - Tolerating well. Helping with the tremor. Telemetry unremarkable. Okay to transition to med/tele #Chest pain #Elevated troponin -In addition to chest pressure during these episodes patient reports-progressive stable angina type symptoms with activity/going up steps for the last several months primarily shortness of breath and chest pressure last stress test in 2019, - He was to follow-up with cardiology at the [facility] in [place] however has had difficulty coordinating those appointments for the last several months - Admit telemetry, cardiology consultation, aspirin given -Troponins normalized, echocardiogram largely unremarkable. Cardiology consult today. Repeat EKG with any evidence of chest pain. Will monitor closely with activity/exertion #Type 2 diabetes -Sliding scale initially, A1c -within goal range - Slightlly elevated with intermittentNPH to go with steroids, within expected range, no hypoglycemia #Minor Trauma -Negative Tertiary Survery 02/26/25 -functional active ROM limitation of left shoulder today, c/w soft tisuse/rotator cuff vs labrum injury, consult orthopedics for PT recs #HTN -monitor, stable at this time, midodrine in his med list -at goal #Hypothyroidism -continue synthroid, TSH still pending #HAKEEM #CKD - Baseline creatinine 1.31.5, 2.1 on admission, fluid resuscitation in the emergency department, serial monitoring - Urinalysis with small ketones and protein/casts, monitor with rehydration - Levels continue to normalize but not yet at optimum baseline. 1.48 today #Hypomagnesemia Goal greater than 2, 1.6 on admission, 2 g IV given, oral supplement - AM Labs #DVT -Continue Eliquis #S/P ureteral carcinoma -tacrolimus and mycphenolate #Anxiety/depression -duloxetine #FEN - Cardiac/diabetic diet #CODE STATUS - Full code per his wishes Admission and Anticipated Discharge Date Admission Date: February 24, 2025 Subjective Doing okay this morning. Appetite is improving. Shaking has been much better since he started metoprolol. Has been trying to get up and move around more and has not had much with physical therapy yet left shoulder has been difficult for him to reach above his head. Largely negative to palpation and deformity on exam yesterday. Otherwise no events or concerns. Eating okay. No problems with eliminations. Discussed inpatient rehab, currently awaiting placement Physical Exam Physical Exam: General: NAD Head: NCAT ENT: oropharynx clear, MMM Neck: supple, no JVD. Lungs: clear to auscultation no wheezing or crackles Heart: Tachycardiac, Irredular; no murmur, rub or gallop. Abdomen: normal bowel sounds, soft, nontender, no distension Extremities: no pretibial edema, no erythema seen MSK: Left shoulder with no palpable tenderness. He does have some discomfort with external rotation and forward flexion, no crepitus Neuro: alert, oriented CN 2- 12 intact, no dysarthria; moves extremities Results & Data Results & Data Vital Signs (Past 12 Hours) Vital Signs Temp Pulse Pulse Resp BP BP Pulse Ox 02/27/25 11:55 68 132/90 02/27/25 11:29 36.8 C 68 18 136/66 98 02/27/25 09:03 66 128/69 02/27/25 07:41 56 L 02/27/25 07:30 36.7 C 89 18 138/81 96 02/27/25 04:29 36.4 C L 59 L 18 148/76 H 95 O2 Del Method 02/27/25 11:55 02/27/25 11:29 Room Air 02/27/25 09:03 02/27/25 07:41 02/27/25 07:30 Room Air 02/27/25 04:29 Room Air Laboratory Results 02/27/25 02/27/25 02/27/25 11:17 07:27 06:49 WBC 5.13 RBC 3.95 L Hgb 11.6 L Hct 34.2 L MCV 86.6 MCH 29.4 MCHC 33.9 RDW Std Deviation 41.8 RDW Coeff of Kusum 13.4 Plt Count 177 MPV 10.7 Immature Gran % (Auto) 0.8 Neut % (Auto) 69.5 Lymph % (Auto) 16.8 Petroleum % (Auto) 11.9 Eos % (Auto) 0.6 Baso % (Auto) 0.4 Neut # (Auto) 3.57 Lymph # (Auto) 0.86 L Petroleum # (Auto) 0.61 H Eos # (Auto) 0.03 Baso # (Auto) 0.02 Immature Gran # (Auto) 0.04 Sodium 137 Potassium 3.7 Chloride 98 Carbon Dioxide 30 Anion Gap 9 BUN 26 H Creatinine 1.48 H Est Cr Clr Drug Dosing 48.9 eGFR 49.34 BUN/Creatinine Ratio 17.6 Glucose 150 H POC Glucose 222 H 156 H Calcium 9.6 Magnesium 1.9 Total Bilirubin 0.5 AST 22 ALT 24 Alkaline Phosphatase 85 Total Protein 5.3 L Albumin 3.4 Globulin 1.9 L Albumin/Globulin Ratio 1.8 02/26/25 02/26/25 20:39 16:27 WBC RBC Hgb Hct MCV MCH MCHC RDW Std Deviation RDW Coeff of Kus[place] Plt Count MPV Immature Gran % (Auto) Neut % (Auto) Lymph % (Auto) Petroleum % (Auto) Eos % (Auto) Baso % (Auto) Neut # (Auto) Lymph # (Auto) Petroleum # (Auto) Eos # (Auto) Baso # (Auto) Immature Gran # (Auto) Sodium Potassium Chloride Carbon Dioxide Anion Gap BUN Creatinine Est Cr Clr Drug Dosing eGFR BUN/Creatinine Ratio Glucose POC Glucose 262 H 169 H Calcium Magnesium Total Bilirubin AST ALT Alkaline Phosphatase Total Protein Albumin Globulin Albumin/Globulin Ratio PG Care Time/CCT Total # of Minutes Spent Total Time Spent with Patient: Total time spent is greater than 50% in coordination of care (as documented) at patient's floor/unit and/or counseling patient: Coding Level of Care Code 32316 SUB INP/OBS CARE 2/35MIN Diagnoses Elevated troponin R79.89 Hypomagnesemia E83.42 Acute kidney injury superimposed on chronic kidney disease N17.9; N18.9 Syncope R55 HTN (hypertension) I10 Exposure to Agent Brooke Z77.098 Diabetes type 2, controlled E11.9 COPD (chronic obstructive pulmonary disease) J44.9 CKD (chronic kidney disease), stage III N18.30 Obstructive sleep apnea G47.33 Carcinoma in situ of bladder D09.0 SVT (supraventricular tachycardia) I47.10
--- NOTE | 2025-02-27 15:53 | Orthopedic Consultation ---
Date of Consultation February 27, 2025 Assessment & Plan (1) Left shoulder pain: 74-year-old male with left shoulder pain x 6+ months, recently exacerbated due to a recent fall Shoulder pain could be secondary to rotator cuff tear versus tendinopathy versus degenerative changes We will order x-rays on the patient's shoulder to further evaluate Recommend physical therapy and avoiding any exercises that aggravate the shoulder Pain control per medicine service We will follow-up once x-rays are done and continue to monitor Patient was seen in conjunction with Dr. Lopez who is in agreement with this plan. Supervising Physician Co-Signing Physician Notes I saw and examined the patient, independently interpreted his chest x-ray regarding his shoulder, formulated the above plan, and performed the substantive portion of the visit. Agree with the above note. Patient will need outpatient orthopedic follow-up in [place] once he returns home. Physical therapy recommended until then to work on scapular stabilizers, rotator cuff strengthening and range of motion exercises. Oral medication per the internal medicine service. History of Present Illness Attending Physician: Chilo Callahan MD History of Present Illness This is a 74-year-old presented a couple days ago to the ED due to dizziness shortness of breath. 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 Orthopedics was consulted for left shoulder pain. He says that he was doing well up until this past July he started to have dizzy spells and has fallen about 4-5 times. He says he has injured his shoulder in his previous times but this most recent time he "jammed it". His hands. He did do generalized physical therapy and feels that some of the exercises he was doing with the bands made his shoulder hurt worse. He was in the [employer]. He has a home in [place] he is currently living in [place] with his 2 daughters. He is up here visiting when he fell. He says that his shoulder pain feels like it is inside and "in the joint" Allergies Allergy/AdvReac Type Severity Reaction Status Date / Time Penicillins AdvReac Severe Syncope Verified 07/25/24 20:19 sulfamethoxazole AdvReac Intermediate "Elevated Verified 07/25/24 20:19 [From Bactrim] Liver readings" trimethoprim [From Bactrim] AdvReac Intermediate "Elevated Verified 07/25/24 20:19 Liver readings" olodaterol AdvReac Mild sore throat Verified 07/25/24 20:19 [From Stiolto Respimat] tiotropium AdvReac Mild sore throat Verified 07/25/24 20:19 [From Stiolto Respimat] lisinopril AdvReac Unknown was told Verified 07/25/24 20:19 not take due to diabetes Home Medications Medication Instructions Recorded Confirmed Type allopurinol 100 mg tablet 100 mg PO QAM 03/14/22 02/24/25 History cholecalciferol (vitamin D3) 25 25 mcg PO BID 03/14/22 02/24/25 History mcg (1,000 unit) capsule insulin glargine 100 unit/mL (3 10 unit subcut QAM 04/17/22 02/24/25 History mL) subcutaneous pen duloxetine 30 mg capsule,delayed 30 mg PO DAILY 07/25/24 02/24/25 History release sprinkle fludrocortisone 0.1 mg tablet 0.1 mg PO DAILY 07/25/24 02/24/25 History insulin aspart U-100 100 unit/mL 0 unit subcut TIDM 07/25/24 02/24/25 History (3 mL) subcutaneous pen (Novolog FlexPen U-100 Insulin aspart) midodrine 10 mg tablet 10 mg PO TID 07/25/24 02/24/25 History vitamin B complex-vitamin C-folic 1 tab PO DAILY 07/25/24 02/24/25 History acid 0.8 mg tablet (Renal Vitamin) levothyroxine 112 mcg tablet 112 mcg PO DAILYBB #30 tabs 07/28/24 02/24/25 Rx (Synthroid) apixaban 5 mg tablet 5 mg PO AMHS 02/24/25 02/24/25 History atovaquone 750 mg/5 mL oral 1,500 mg PO QAM 02/24/25 02/24/25 History suspension insulin NPH isoph U-100 human 100 0 unit subcut DIRECTED PRN 02/24/25 02/24/25 History unit/mL subcutaneous suspension PREDNISONE (Humulin N NPH U-100 Insulin (isophane susp)) mycophenolate mofetil 500 mg tablet 1,000 mg PO AMHS 02/24/25 02/24/25 History prednisolone 5 mg tablet 15 mg PO QAM 02/24/25 02/24/25 History propranolol 10 mg tablet 20 mg PO AMHS 02/24/25 02/24/25 History tacrolimus 1 mg tablet,extended 1 mg PO AMHS 02/24/25 02/24/25 History release 24 hr Patient History Medical History Hematuria Carcinoma in situ of bladder Recurrent Starting mid 03/2024, stopped immunotherapy due to issues with liver and pancreas, "currently on prednisone to help with this" Lumbar herniated disc Chronic back pain R/t injury when he was in the as he fell on his back HTN (hypertension) Malignant neoplasm of kidney 2018 [facility] Left nephrectomy and currently undergoing cysto procedures q 3months Exposure to Agent [place] [employer] History of chemotherapy 2018 - administered in [facility] 2023- immunotherapy for bladder cancer and tumor in right kidney (stopped mid 03/2024 "due to issues with liver and pancreas") Bilateral hearing loss Hearing Aids (doesn't use d/t tinnitus per patient) Diabetes type 2, controlled IDDM Obstructive sleep apnea No longer uses CPAP Gout COPD (chronic obstructive pulmonary disease) CKD (chronic kidney disease), stage III Bilateral primary osteoarthritis of hip Surgical History S/P cystoscopy with ureteral stent placement 02/2024, stent exchange Hx of toe surgery (2023) R/t ingrown toenails Port-A-Cath in place (12/05/23) Insertion MRI Compatible Access Port History of nephrectomy, left (2017) Cancer and kidney was removed in 2018 Hx of nasal septoplasty (Unknown) due to deviated septum H/O colonoscopy H/O foot surgery Right - Big Toe History of removal of Port-a-Cath 2018 H/O cystoscopy multiple (Every 3 months) Currently has stent in place History of kidney surgery (2023) Left kidney removal 2018 r/t cancer "Laser to my Right Kidney for cancer 2023" Family History Brother Clotting disorder Diabetes Social History (Reviewed 02/27/25 @ 15:46 by RADHIKA Metcalf Smoking Status: Never smoker Tobacco Type: Cigarettes Age Started Using Tobacco: 12; Age Quit Using Tobacco: 65; Second Hand Exposure: Yes (hx growing up); Do You Dip or Chew Tobacco: No; Hx Alcohol Use: No Hx Substance Use: No Preferred Language: Japanese Communication Ability: Effective 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 There is no abrasions or skin abnormalities. No swelling, masses or deformity. Patient does not have any tenderness to touch about the shoulder or the AC joint. Range of motion: 85 degrees active abduction, 15 degrees of active forward flexion, he is able to externally rotate actively to 35 degrees, passively to 45 degrees. Internal rotation to L1. 3 out of 5 strength with external rotation, 4+ out of 5 strength with internal rotation, 4+ out of 5 strength with abduction. Negative empty can sign. Patient has sensation intact distally to light touch but does report somewhat diminished which this is his baseline as he has neuropathy in both Results & Data Vital Signs (Past 12 Hours) Vital Signs Temp Pulse Pulse Resp BP BP Pulse Ox 02/27/25 11:55 68 132/90 02/27/25 11:29 36.8 C 68 18 136/66 98 02/27/25 09:03 66 128/69 02/27/25 07:41 56 L 02/27/25 07:30 36.7 C 89 18 138/81 96 02/27/25 04:29 36.4 C L 59 L 18 148/76 H 95 O2 Del Method 02/27/25 11:55 02/27/25 11:29 Room Air 02/27/25 09:03 02/27/25 07:41 02/27/25 07:30 Room Air 02/27/25 04:29 Room Air Diagnostic Findings No shoulder x-rays available at the time of this consultation. However he did have a chest x-ray where we can see part of the left shoulder which demonstrates no fractures and mild to moderate arthritis at his AC joint. No obvious glenohumeral joint arthritis. Humeral head appears well centered on the glenoid.
[2025-02-28 07:18] LABS: Hematocrit (blood only) 33.4 % (42.0-52.0); Hemoglobin 11.6 g/dL (14.0-18.0); Immature Granulocytes # (auto) 0.03 K/uL (0.01-0.20); Immature Granulocytes % (auto) 0.6 %; Mean Corpuscular Hemoglobin 29.7 pg (25.0-34.0); Mean Corpuscular Volume 85.6 fL (80.0-100.0); Platelet Count 197 K/uL (130-400); RDW Standard Deviation 41.2 fL (36.4-46.3); Red Blood Count 3.90 M/uL (4.70-6.10); White Blood Count 5.25 K/ul (4.8-10.8)
[2025-02-28 08:04] LABS: Anion Gap 8.0 (3-11); Blood Urea Nitrogen 29.0 mg/dl (6-23); Calcium 9.7 mg/dl (8.6-10.3); Carbon Dioxide 30.0 mmol/L (21-32); Chloride 99.0 mmol/L (98-107); Creatinine Clr Calc Pharmacy 51.6 ml/min; Glucose 179.0 mg/dl (70-99(Fasting)); Magnesium 1.8 mg/dl (1.7-2.4); Potassium 3.8 mmol/L (3.5-5.1); Sodium 137.0 mmol/L (136-145)
--- NOTE | 2025-02-28 11:36 | Hospitalist Progress Note ---
Date of Service February 28, 2025 Assessment & Plan (1) Elevated troponin: (2) Hypomagnesemia: (3) Acute kidney injury superimposed on chronic kidney disease: (4) Syncope: (5) HTN (hypertension): (6) Exposure to Agent [place]: (7) Diabetes type 2, controlled: (8) COPD (chronic obstructive pulmonary disease): (9) CKD (chronic kidney disease), stage III: (10) Obstructive sleep apnea: (11) Carcinoma in situ of bladder: (12) SVT (supraventricular tachycardia): Plan # SVT # Orthostasis -Status post adenosine 6 mg x 1 with aborted SVT in ED. Brief recurrence responded well to IV metoprolol - No recurrent significant SVT, brief runs into the 130 range - Most consistent with intermittent treatment atrial fibrillation. Echocardiogram unremarkable. Will monitor for orthostasis through today today - DC Propranolol, start metoprolol succinate - Tolerating well. Helping with the tremor. Telemetry unremarkable. Okay to transition to med/tele - Stable Med/Tele Status, boarding in PCU #Chest pain #Elevated troponin -In addition to chest pressure during these episodes patient reports-progressive stable angina type symptoms with activity/going up steps for the last several months primarily shortness of breath and chest pressure last stress test in 2019, - He was to follow-up with cardiology at the [facility] in [place] however has had difficulty coordinating those appointments for the last several months - Admit telemetry, cardiology consultation, aspirin given -Troponins normalized, echocardiogram largely unremarkable. Cardiology consult today. Repeat EKG with any evidence of chest pain. Will monitor closely with activity/exertion - Rate Stable, no changes #Weakness/Deconditioning - Significant functional decline in recent weeks given modifications to his baseline medications, difficulties with compliance. - Inpatient rehab appropriate per physical therapy, I am in agreement with this plan as he is going to have revisions made to his baseline cholinergic active medications that are likely to interfere with his progress and recovery for the short-term #Occipital neuralgia - Patient had a recent episode of shingles on the right side of the cheek has had pain around the right ear and the posterior scalp that is lightening like or sharp in nature. He also feels a tightness in the back of his head it is related. [facility] in [facility] [place] [facility] but was not sure what they were. No indication for Valtrex at this point as there are no lesions or rashes, he has had gabapentin in the past for other neuropathic pain. Will restart at low-dose and titrate #Minor Trauma -Negative Tertiary Survery 02/26/25 -functional active ROM limitation of left shoulder today, c/w soft tisuse/rotator cuff vs labrum injury, consult orthopedics for PT recs #Shoulder Pain -present for > 6 month, worsened by fall, see orthopedics consult and mgmt, appreciate recs #Type 2 diabetes -Sliding scale initially, A1c -within goal range - Slightlly elevated with intermittent NPH to go with steroids, within expected range, no hypoglycemia - He needs to get another dexcomm for his CGM #HTN -monitor, stable at this time, midodrine in his med list -at goal #Hypothyroidism -continue synthroid, TSH still pending #HAKEEM #CKD - Baseline creatinine 1.31.5, 2.1 on admission, fluid resuscitation in the emergency department, serial monitoring - Urinalysis with small ketones and protein/casts, monitor with rehydration - Levels continue to normalize but not yet at optimum baseline. 1.48 today #Hypomagnesemia Goal greater than 2, 1.6 on admission, 2 g IV given, oral supplement - AM Labs #DVT -Continue Eliquis #S/P ureteral carcinoma -tacrolimus and mycphenolate #Anxiety/depression -duloxetine #FEN - Cardiac/diabetic diet #CODE STATUS - Full code per his wishes Admission and Anticipated Discharge Date Admission Date: February 24, 2025 Physical Exam Physical Exam: General: NAD Head: NCAT ENT: oropharynx clear, MMM Neck: supple, no JVD. Lungs: clear to auscultation no wheezing or crackles Heart: Tachycardiac, Irredular; no murmur, rub or gallop. Abdomen: normal bowel sounds, soft, nontender, no distension Extremities: no pretibial edema, no erythema seen MSK: Left shoulder with no palpable tenderness. He does have some discomfort with external rotation and forward flexion, no crepitus Neuro: alert, oriented CN 2- 12 intact, no dysarthria; moves extremities Results & Data Results & Data Vital Signs (Past 12 Hours) Vital Signs Temp Pulse Pulse Resp BP Pulse Ox O2 Del Method 02/28/25 08:09 Room Air 02/28/25 07:14 69 02/28/25 05:55 123/68 02/28/25 00:28 36.5 C 65 17 160/79 H 94 Room Air 02/28/25 00:00 66 Laboratory Results 02/28/25 02/28/25 02/28/25 11:29 07:36 06:40 WBC 5.25 RBC 3.90 L Hgb 11.6 L Hct 33.4 L MCV 85.6 MCH 29.7 MCHC 34.7 RDW Std Deviation 41.2 RDW Coeff of Kusum 13.5 Plt Count 197 MPV 10.6 Immature Gran % (Auto) 0.6 Neut % (Auto) 71.2 Lymph % (Auto) 17.1 Baxter % (Auto) 10.3 Eos % (Auto) 0.4 Baso % (Auto) 0.4 Neut # (Auto) 3.74 Lymph # (Auto) 0.90 L Baxter # (Auto) 0.54 Eos # (Auto) 0.02 Baso # (Auto) 0.02 Immature Gran # (Auto) 0.03 Sodium 137 Potassium 3.8 Chloride 99 Carbon Dioxide 30 Anion Gap 8 BUN 29 H Creatinine 1.40 Est Cr Clr Drug Dosing 51.6 eGFR 52.74 BUN/Creatinine Ratio 20.7 H Glucose 179 H POC Glucose 211 H 182 H Calcium 9.7 Magnesium 1.8 02/27/25 02/27/25 21:04 15:49 WBC RBC Hgb Hct MCV MCH MCHC RDW Std Deviation RDW Coeff of Kusum Plt Count MPV Immature Gran % (Auto) Neut % (Auto) Lymph % (Auto) Baxter % (Auto) Eos % (Auto) Baso % (Auto) Neut # (Auto) Lymph # (Auto) Baxter # (Auto) Eos # (Auto) Baso # (Auto) Immature Gran # (Auto) Sodium Potassium Chloride Carbon Dioxide Anion Gap BUN Creatinine Est Cr Clr Drug Dosing eGFR BUN/Creatinine Ratio Glucose POC Glucose 245 H 201 H Calcium Magnesium PG Care Time/CCT Total # of Minutes Spent Total Time Spent with Patient: Total time spent is greater than 50% in coordination of care (as documented) at patient's floor/unit and/or counseling patient: Coding Level of Care Code 33029 SUB INP/OBS CARE 2/35MIN Diagnoses Elevated troponin R79.89 Hypomagnesemia E83.42 Acute kidney injury superimposed on chronic kidney disease N17.9; N18.9 Syncope R55 HTN (hypertension) I10 Exposure to Agent [place] Z77.098 Diabetes type 2, controlled E11.9 COPD (chronic obstructive pulmonary disease) J44.9 CKD (chronic kidney disease), stage III N18.30 Obstructive sleep apnea G47.33 Carcinoma in situ of bladder D09.0 SVT (supraventricular tachycardia) I47.10
[2025-02-28] MEDS: GABAPENTIN 100 MG CAP PO SCH (13:10)
--- NOTE | 2025-02-28 15:03 | XRay Report ---
Exam: 3 shoulder minimal 2 views. Exam reason: Shoulder pain. Comparison: No prior examinations available for comparison. Technique: Internally rotated, scapular-Y and externally rotated views were obtained. Findings: There is no evidence of acute fracture or dislocation. No unusual soft tissue calcifications are noted and no radiopaque foreign bodies are seen. There is joint space loss and mild marginal osteophyte formation noted at the acromioclavicular joint. There is mild joint space loss noted at the glenohumeral joint. 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 Electronically signed by Will Le 02-28-2025 3:03 PM
[2025-03-01 05:57] LABS: Hematocrit (blood only) 33.1 % (42.0-52.0); Hemoglobin 11.5 g/dL (14.0-18.0); Immature Granulocytes # (auto) 0.03 K/uL (0.01-0.20); Immature Granulocytes % (auto) 0.5 %; Mean Corpuscular Hemoglobin 30.0 pg (25.0-34.0); Mean Corpuscular Volume 86.4 fL (80.0-100.0); Platelet Count 199 K/uL (130-400); RDW Standard Deviation 41.5 fL (36.4-46.3); Red Blood Count 3.83 M/uL (4.70-6.10); White Blood Count 5.63 K/ul (4.8-10.8)
[2025-03-01 06:16] LABS: Alanine Aminotransferase 31.0 U/L (7-52); Albumin Globulin Ratio 1.8 (0.9-2); Albumin Level 3.5 gm/dl (3.4-5.0); Alkaline Phosphatase 97.0 U/L (34-104); Anion Gap 8.0 (3-11); Bilirubin,Total 0.5 mg/dl (0.2-1.0); Blood Urea Nitrogen 32.0 mg/dl (6-23); Calcium 9.6 mg/dl (8.6-10.3); Carbon Dioxide 29.0 mmol/L (21-32); Chloride 99.0 mmol/L (98-107); Creatinine Clr Calc Pharmacy 49.4 ml/min; Globulin 2.0 gm/dl (2.5-4.0); Glucose 224.0 mg/dl (70-99(Fasting)); Potassium 4.3 mmol/L (3.5-5.1); Sodium 136.0 mmol/L (136-145); Total Protein 5.5 gm/dl (6.0-8.3)
--- NOTE | 2025-03-01 09:56 | Hospitalist Progress Note ---
Date of Service March 01, 2025 Assessment & Plan (1) SVT (supraventricular tachycardia): Plan: -Status post adenosine 6 mg x 1 with aborted SVT in ED. Brief recurrence responded well to IV metoprolol - No recurrent significant SVT, brief runs into the 130 range - Most consistent with intermittent treatment atrial fibrillation. Echocardiogram unremarkable. - con't metoprolol -awaiting rehab placement (2) Elevated troponin: Plan: -Troponins normalized, echocardiogram largely unremarkable. -Cardiology consult appreciated (3) Diabetes type 2, controlled: Plan: -sliding scale (4) CKD (chronic kidney disease), stage III: Plan: - Baseline creatinine 1.31.5, 2.1 on admission, fluid resuscitation in the emergency department, serial monitoring - Urinalysis with small ketones and protein/casts, monitor with rehydration - Levels continue to normalize (5) Hypothyroidism: Plan: -continue Synthroid Plan #CODE STATUS - Full code per his wishes Admission and Anticipated Discharge Date Admission Date: February 24, 2025 Subjective No events overnight. Pt resting comfortably in bed. Review of Systems Review of Systems: CONST: Negative for fever, body aches and chills. HENT: Negative for neck pain/stiffness, headache, congestion, sore throat, swelling. EYES: Negative for discharge/pain or vision changes. RESP: Negative for cough/hemoptysis and shortness of breath. CV: Negative chest pain, difficulty breathing, palpitations. ABD: Negative pain, nausea, vomiting. : Negative increase frequency, dysuria, blood in urine or stool. MUSC: Negative for muscle aches, edema. SKIN: Negative rash, lesions/sores. NEURO: Negative headache, dizziness, weakness. Physical Exam Physical Exam: GENERAL APPEARANCE NAD, activity normal for age, well developed/ well nourished, no cyanosis, pallor, or diaphoresis. EYES lids/conjunctiva normal. EARS/NOSE/THROAT Mucous membranes moist, nares normal, lips/teeth normal uvula midline without oral pharyngeal erythema, exudate or swelling TMs normal bilaterally. No lymphangitis/lymphedema. HEAD/NECK normocephalic atraumatic, no facial trauma, neck is supple. RESPIRATORY respiratory effort normal, speaks in full sentences, no tripod position, no accessory muscle use. Lungs clear to auscultation without rhonchi, wheezes, rales CARDIAC Regular rate and rhythm, no edema. ABDOMINAL Soft, ND/NT. No evidence of fluid wave. No pulsatile masses on exam, rebound tenderness, [place] sign or pain over Mcburney's point. MUSCLES/EXTREMITIES No abnormal range of motion, no swelling. SKIN Warm, pink and dry. No rashes, dermatoses, petechiae or lesions. NEUROLOGICAL Speech is clear and appropriate. Normal level of consciousness. Gait and coordination are normal. 5/5 strength in all extremities. PSYCH Normal mood and affect. Judgement/competence is appropriate Results & Data Results & Data Vital Signs (Past 12 Hours) Vital Signs Temp Pulse Pulse Resp BP Pulse Ox O2 Del Method 03/01/25 08:45 Room Air 03/01/25 07:26 36.7 C 70 21 154/82 H 95 Room Air 03/01/25 07:09 70 03/01/25 03:49 36.7 C 68 16 118/66 95 Room Air 03/01/25 00:18 36.8 C 68 17 125/65 95 Room Air 02/28/25 23:44 67 PG Care Time/CCT Total # of Minutes Spent Total Time Spent with Patient: Total time spent is greater than 50% in coordination of care (as documented) at patient's floor/unit and/or counseling patient: Coding Level of Care Code 73852 SUB INP/OBS CARE 2/35MIN Diagnoses SVT (supraventricular tachycardia) I47.10 Elevated troponin R79.89 Diabetes type 2, controlled E11.9 CKD (chronic kidney disease), stage III N18.30 Hypothyroidism E03.9
--- NOTE | 2025-03-01 10:08 | Orthopedic Progress Note ---
Date of Service March 01, 2025 Assessment & Plan (1) Left shoulder pain: Plan: 74-year-old male with left shoulder pain x 6+ months, recently exacerbated due to a recent fall Shoulder pain could be secondary to rotator cuff tear versus tendinopathy versus degenerative changes Patient notes improvement with his shoulder currently not having any pain or complaints X-rays reviewed interpretation above Recommend physical therapy and avoiding any exercises that aggravate the shoulder Pain control per medicine service Patient may follow up in our office as needed 4 weeks from discharge, information included in his discharge instructions Will sign off, please tiger text with any questions or concerns Admission and Anticipated Discharge Date Admission Date: February 24, 2025 Deborah Villarreal was seen and examined this morning. He reports that he is doing well. He says that his shoulder feels better from resting. He says that he was up and walking with a walker and his shoulder did not bother him. Physical Exam Physical Exam: 02/27/25 Left shoulder: Skin is intact. There is no abrasions or skin abnormalities. No swelling, masses or deformity. Patient does not have any tenderness to touch about the shoulder or the AC joint. Range of motion: 85 degrees active abduction, 15 degrees of active forward flexion, he is able to externally rotate actively to 35 degrees, passively to 45 degrees. Internal rotation to L1. 3 out of 5 strength with external rotation, 4+ out of 5 strength with internal rotation, 4+ out of 5 strength with abduction. Negative empty can sign. Patient has sensation intact distally to light touch but does report somewhat diminished which this is his baseline as he has neuropathy in both Results & Data Vital Signs (Past 12 Hours) Vital Signs Temp Pulse Pulse Resp BP Pulse Ox O2 Del Method 03/01/25 08:45 Room Air 03/01/25 07:26 36.7 C 70 21 154/82 H 95 Room Air 03/01/25 07:09 70 03/01/25 03:49 36.7 C 68 16 118/66 95 Room Air 03/01/25 00:18 36.8 C 68 17 125/65 95 Room Air 02/28/25 23:44 67 Diagnostic Findings X-rays were done at [facility] 02/28/2025, 3 view of his left shoulder that show no fracture, dislocation or subluxation. He has mild to moderate degenerative changes in his glenohumeral and his AC joint with some bone spurs noted over the AC joint and some subacromial small calcifications noted.
[2025-03-01] MEDS ORDERED: PHARMACY GLYCEMIC MGMT CONSULT PRN (11:44)
[2025-03-01] MEDS: LANTUS PER UNIT CHARGE SC STA (12:46)
--- NOTE | 2025-03-01 15:10 | Pharmacy Report ---
Pharmacy Glycemic Short Note 2 - Date of Service March 01, 2025 - Glycemic Short BSG Results (Last 24 hours): 02/28/25 02/28/25 03/01/25 16:13 20:25 05:30 Glucose 224 H POC Glucose 226 H 295 H 03/01/25 03/01/25 03/01/25 07:28 11:20 11:21 Glucose POC Glucose 201 H 301 H* 292 H OUTPATIENT ANTIDIABETIC REGIMEN: * A1c: 6.5% 02-25-25 * Lantus 10 units daily * NPH 16 units daily with prednisone 15mg * Novolog 8 units with breakfast, 10 units with lunch and dinner * Novolog sliding scale ASSESSMENT: * Patient admitted for orthostasis secondary to SVT. Patient's BSGs have been in the 200sfor much of this admission. He was continued on home NPH but no Lantus. Will resume lantus today and tighten novolog scale to better reflect total outpatient regimen, in addition to inpatient stressors. * Patient ordered and tolerating a diet. PLAN FOR INPATIENT GLYCEMIC CONTROL: * Hold outpatient oral diabetes medications * Basal insulin * Lantus 20 units SQ X 1 * Bolus insulin * NovoLog per scale ACHS or Q6hrs while NPO * Goal Range: Low 110 mg/dL - High 150 mg/dL * Correction Factor: 25 mg/dL/unit * Nutritional / Prandial insulin per carb ratio of 1 unit per 9 grams CHO consumed
--- NOTE | 2025-03-02 09:16 | Hospitalist Progress Note ---
Date of Service March 02, 2025 Assessment & Plan (1) SVT (supraventricular tachycardia): Plan: -Status post adenosine 6 mg x 1 with aborted SVT in ED. Brief recurrence responded well to IV metoprolol - No recurrent significant SVT, brief runs into the 130 range - Most consistent with intermittent treatment atrial fibrillation. Echocardiogram unremarkable. - con't metoprolol -awaiting rehab placement (2) Elevated troponin: Plan: -Troponins normalized, echocardiogram largely unremarkable. -Cardiology consult appreciated (3) Diabetes type 2, controlled: Plan: -sliding scale (4) CKD (chronic kidney disease), stage III: Plan: - Baseline creatinine 1.31.5, 2.1 on admission, fluid resuscitation in the emergency department, serial monitoring - Urinalysis with small ketones and protein/casts, monitor with rehydration - Levels continue to normalize (5) Hypothyroidism: Plan: -continue Synthroid Plan #CODE STATUS - Full code per his wishes Admission and Anticipated Discharge Date Admission Date: February 24, 2025 Subjective No events overnight. Pt resting comfortably in bed. Review of Systems Review of Systems: CONST: Negative for fever, body aches and chills. HENT: Negative for neck pain/stiffness, headache, congestion, sore throat, swelling. EYES: Negative for discharge/pain or vision changes. RESP: Negative for cough/hemoptysis and shortness of breath. CV: Negative chest pain, difficulty breathing, palpitations. ABD: Negative pain, nausea, vomiting. : Negative increase frequency, dysuria, blood in urine or stool. MUSC: Negative for muscle aches, edema. SKIN: Negative rash, lesions/sores. NEURO: Negative headache, dizziness, weakness. Physical Exam Physical Exam: GENERAL APPEARANCE NAD, activity normal for age, well developed/ well nourished, no cyanosis, pallor, or diaphoresis. EYES lids/conjunctiva normal. EARS/NOSE/THROAT Mucous membranes moist, nares normal, lips/teeth normal uvula midline without oral pharyngeal erythema, exudate or swelling TMs normal bilaterally. No lymphangitis/lymphedema. HEAD/NECK normocephalic atraumatic, no facial trauma, neck is supple. RESPIRATORY respiratory effort normal, speaks in full sentences, no tripod position, no accessory muscle use. Lungs clear to auscultation without rhonchi, wheezes, rales CARDIAC Regular rate and rhythm, no edema. ABDOMINAL Soft, ND/NT. No evidence of fluid wave. No pulsatile masses on exam, rebound tenderness, [place] sign or pain over Mcburney's point. MUSCLES/EXTREMITIES No abnormal range of motion, no swelling. SKIN Warm, pink and dry. No rashes, dermatoses, petechiae or lesions. NEUROLOGICAL Speech is clear and appropriate. Normal level of consciousness. Gait and coordination are normal. 5/5 strength in all extremities. PSYCH Normal mood and affect. Judgement/competence is appropriate Results & Data Results & Data Vital Signs (Past 12 Hours) Vital Signs Temp Pulse Pulse Resp BP Pulse Ox O2 Del Method 03/02/25 07:27 36.7 C 71 22 143/79 H 94 Room Air 03/02/25 07:27 73 03/02/25 01:29 67 03/01/25 22:58 36.8 C 75 16 118/69 95 Room Air PG Care Time/CCT Total # of Minutes Spent Total Time Spent with Patient: Total time spent is greater than 50% in coordination of care (as documented) at patient's floor/unit and/or counseling patient: Coding Level of Care Code 56706 SUB INP/OBS CARE 2/35MIN Diagnoses SVT (supraventricular tachycardia) I47.10 Elevated troponin R79.89 Diabetes type 2, controlled E11.9 CKD (chronic kidney disease), stage III N18.30 Hypothyroidism E03.9
[2025-03-02] MEDS: LANTUS PER UNIT CHARGE SC STA (09:29)
--- NOTE | 2025-03-02 10:13 | Pharmacy Report ---
Pharmacy Glycemic Short Note 2 - Date of Service March 02, 2025 - Glycemic Short BSG Results (Last 24 hours): 03/01/25 03/01/25 03/01/25 11:20 11:21 15:46 POC Glucose 301 H* 292 H 209 H 03/01/25 03/02/25 20:39 07:29 POC Glucose 235 H 179 H OUTPATIENT ANTIDIABETIC REGIMEN: * A1c: 6.5% 02-25-25 * Lantus 10 units daily * NPH 16 units daily with prednisone 15mg * Novolog 8 units with breakfast, 10 units with lunch and dinner * Novolog sliding scale ASSESSMENT: 03/02: * Patient's BSG yesterday afternoon and evening were 209 and 235 mg/dL. Fasting BSG this morning improved to 179 mg/dL. * As patient is likely still somewhat basally deficient, will continue with an increased lantus dose for today. * Will tighten novolog scale slightly. * Patient continues on prednisone 15mg and is tolerating a diet. 03/01 * Patient admitted for orthostasis secondary to SVT. Patient's BSGs have been in the 200sfor much of this admission. He was continued on home NPH but no Lantus. Will resume lantus today and tighten novolog scale to better reflect total outpatient regimen, in addition to inpatient stressors. * Patient ordered and tolerating a diet. PLAN FOR INPATIENT GLYCEMIC CONTROL: * Hold outpatient oral diabetes medications * Basal insulin * Lantus 15 units SQ X 1 * Bolus insulin * NovoLog per scale ACHS or Q6hrs while NPO * Goal Range: Low 110 mg/dL - High 150 mg/dL * Correction Factor: 25 mg/dL/unit * Nutritional / Prandial insulin per carb ratio of 1 unit per 8 grams CHO consumed
[2025-03-03] MEDS: INSULIN ASPART PER UNIT CHARGE SC SCH ×2 (02:14→23:48)
[2025-03-03] MEDS: LANTUS PER UNIT CHARGE SC SCH (08:08)
--- NOTE | 2025-03-03 09:25 | Hospitalist Progress Note ---
Date of Service March 03, 2025 Assessment & Plan (1) SVT (supraventricular tachycardia): Plan: -Status post adenosine 6 mg x 1 with aborted SVT in ED. Brief recurrence responded well to IV metoprolol - No recurrent significant SVT, brief runs into the 130 range - Most consistent with intermittent treatment atrial fibrillation. Echocardiogram unremarkable. - con't metoprolol -awaiting rehab placement, not eligible for [facility] -Case management waiting on follow up with [place] -Pt plans to return home with his daughter in [place] (2) Elevated troponin: Plan: -Troponins normalized, echocardiogram largely unremarkable. -Cardiology consult appreciated (3) Diabetes type 2, controlled: Plan: -sliding scale (4) CKD (chronic kidney disease), stage III: Plan: - Baseline creatinine 1.31.5, 2.1 on admission, fluid resuscitation in the emergency department, serial monitoring - Urinalysis with small ketones and protein/casts, monitor with rehydration - Levels continue to normalize (5) Hypothyroidism: Plan: -continue Synthroid Plan #CODE STATUS - Full code per his wishes Admission and Anticipated Discharge Date Admission Date: February 24, 2025 Subjective No events overnight. Pt resting comfortably in bed. Review of Systems Review of Systems: CONST: Negative for fever, body aches and chills. HENT: Negative for neck pain/stiffness, headache, congestion, sore throat, swelling. EYES: Negative for discharge/pain or vision changes. RESP: Negative for cough/hemoptysis and shortness of breath. CV: Negative chest pain, difficulty breathing, palpitations. ABD: Negative pain, nausea, vomiting. : Negative increase frequency, dysuria, blood in urine or stool. MUSC: Negative for muscle aches, edema. SKIN: Negative rash, lesions/sores. NEURO: Negative headache, dizziness, weakness. Physical Exam Physical Exam: GENERAL APPEARANCE NAD, activity normal for age, well developed/ well nourished, no cyanosis, pallor, or diaphoresis. EYES lids/conjunctiva normal. EARS/NOSE/THROAT Mucous membranes moist, nares normal, lips/teeth normal uvula midline without oral pharyngeal erythema, exudate or swelling TMs normal bilaterally. No lymphangitis/lymphedema. HEAD/NECK normocephalic atraumatic, no facial trauma, neck is supple. RESPIRATORY respiratory effort normal, speaks in full sentences, no tripod position, no accessory muscle use. Lungs clear to auscultation without rhonchi, wheezes, rales CARDIAC Regular rate and rhythm, no edema. ABDOMINAL Soft, ND/NT. No evidence of fluid wave. No pulsatile masses on exam, rebound tenderness, [place] sign or pain over Mcburney's point. MUSCLES/EXTREMITIES No abnormal range of motion, no swelling. SKIN Warm, pink and dry. No rashes, dermatoses, petechiae or lesions. NEUROLOGICAL Speech is clear and appropriate. Normal level of consciousness. Gait and coordination are normal. 5/5 strength in all extremities. PSYCH Normal mood and affect. Judgement/competence is appropriate Results & Data Results & Data Vital Signs (Past 12 Hours) Vital Signs Temp Pulse Pulse Resp BP Pulse Ox O2 Del Method 03/03/25 08:22 36.4 C L 70 20 158/83 H 95 Room Air 03/03/25 07:26 64 03/03/25 04:30 36.4 C L 69 16 137/74 96 Room Air 03/02/25 23:49 36.7 C 69 17 148/71 H 93 Room Air 03/02/25 22:34 67 PG Care Time/CCT Total # of Minutes Spent Total Time Spent with Patient: Total time spent is greater than 50% in coordination of care (as documented) at patient's floor/unit and/or counseling patient: Coding Level of Care Code 94798 SUB INP/OBS CARE 2/35MIN Diagnoses SVT (supraventricular tachycardia) I47.10 Elevated troponin R79.89 Diabetes type 2, controlled E11.9 CKD (chronic kidney disease), stage III N18.30 Hypothyroidism E03.9
--- NOTE | 2025-03-04 09:19 | Hospitalist Progress Note ---
Date of Service March 04, 2025 Assessment & Plan (1) SVT (supraventricular tachycardia): Plan: -Status post adenosine 6 mg x 1 with aborted SVT in ED. Brief recurrence responded well to IV metoprolol - No recurrent significant SVT, brief runs into the 130 range - Most consistent with intermittent treatment atrial fibrillation. Echocardiogram unremarkable. - con't metoprolol -awaiting rehab placement, not eligible for [facility] -Case management waiting on follow up with [place] -Pt plans to return home with his daughter in [place] (2) Elevated troponin: Plan: -Troponins normalized, echocardiogram largely unremarkable. -Cardiology consult appreciated (3) Diabetes type 2, controlled: Plan: -sliding scale (4) CKD (chronic kidney disease), stage III: Plan: - Baseline creatinine 1.31.5, 2.1 on admission, fluid resuscitation in the emergency department, serial monitoring - Urinalysis with small ketones and protein/casts, monitor with rehydration - Levels continue to normalize (5) Hypothyroidism: Plan: -continue Synthroid Plan #CODE STATUS - Full code per his wishes Admission and Anticipated Discharge Date Admission Date: February 24, 2025 Subjective No events overnight. Pt resting comfortably in bed. Review of Systems Review of Systems: CONST: Negative for fever, body aches and chills. HENT: Negative for neck pain/stiffness, headache, congestion, sore throat, swelling. EYES: Negative for discharge/pain or vision changes. RESP: Negative for cough/hemoptysis and shortness of breath. CV: Negative chest pain, difficulty breathing, palpitations. ABD: Negative pain, nausea, vomiting. : Negative increase frequency, dysuria, blood in urine or stool. MUSC: Negative for muscle aches, edema. SKIN: Negative rash, lesions/sores. NEURO: Negative headache, dizziness, weakness. Physical Exam Physical Exam: GENERAL APPEARANCE NAD, activity normal for age, well developed/ well nourished, no cyanosis, pallor, or diaphoresis. EYES lids/conjunctiva normal. EARS/NOSE/THROAT Mucous membranes moist, nares normal, lips/teeth normal uvula midline without oral pharyngeal erythema, exudate or swelling TMs normal bilaterally. No lymphangitis/lymphedema. HEAD/NECK normocephalic atraumatic, no facial trauma, neck is supple. RESPIRATORY respiratory effort normal, speaks in full sentences, no tripod position, no accessory muscle use. Lungs clear to auscultation without rhonchi, wheezes, rales CARDIAC Regular rate and rhythm, no edema. ABDOMINAL Soft, ND/NT. No evidence of fluid wave. No pulsatile masses on exam, rebound tenderness, [place] sign or pain over Mcburney's point. MUSCLES/EXTREMITIES No abnormal range of motion, no swelling. SKIN Warm, pink and dry. No rashes, dermatoses, petechiae or lesions. NEUROLOGICAL Speech is clear and appropriate. Normal level of consciousness. Gait and coordination are normal. 5/5 strength in all extremities. PSYCH Normal mood and affect. Judgement/competence is appropriate Results & Data Results & Data Vital Signs (Past 12 Hours) Vital Signs Temp Pulse Pulse Resp BP BP Pulse Ox 03/04/25 07:47 36.8 C 75 18 159/72 H 91 03/04/25 03:48 37.0 C 73 17 143/75 H 93 03/03/25 23:45 142/79 H 03/03/25 23:41 36.8 C 74 17 162/82 H 94 03/03/25 23:05 72 O2 Del Method 03/04/25 07:47 Room Air 03/04/25 03:48 Room Air 03/03/25 23:45 03/03/25 23:41 Room Air 03/03/25 23:05 PG Care Time/CCT Total # of Minutes Spent Total Time Spent with Patient: Total time spent is greater than 50% in coordination of care (as documented) at patient's floor/unit and/or counseling patient: Coding Level of Care Code 59263 SUB INP/OBS CARE 2/35MIN Diagnoses SVT (supraventricular tachycardia) I47.10 Elevated troponin R79.89 Diabetes type 2, controlled E11.9 CKD (chronic kidney disease), stage III N18.30 Hypothyroidism E03.9
[2025-03-04] MEDS: SODIUM CHLORIDE 0.9% 500 ML IV ONE (11:28)
--- NOTE | 2025-03-04 13:37 | Pharmacy Report ---
Pharmacy Glycemic Short Note 2 - Date of Service March 04, 2025 - Glycemic Short BSG Results (Last 24 hours): 03/03/25 03/03/25 03/03/25 16:29 20:29 23:42 POC Glucose 187 H 132 H 148 H 03/04/25 03/04/25 03/04/25 00:40 03:51 07:35 POC Glucose 129 H 151 H 140 H 03/04/25 11:03 POC Glucose 214 H OUTPATIENT ANTIDIABETIC REGIMEN: * A1c: 6.5% 02-25-25 * Lantus 10 units daily * NPH 16 units daily with prednisone 15mg * Novolog 8 units with breakfast, 10 units with lunch and dinner * Novolog sliding scale ASSESSMENT: 03/04: * Patient's BSGs ranged from 129-218 in past 24 hours * Over past 24 hours, lunch glucose has been a bit higher than others * Other than lunch glucose, patient's BSGs are within goal range of <180 mg/dL * Tighten carb ratio with breakfast a bit more, leave carb ratios as is for other meals * Leave Lantus 15 units daily for now, will need to monitor AM glucose for adjustment * Continue home NPH with prednisone * T2DM, heart healthy diet 03/02: * Patient's BSG yesterday afternoon and evening were 209 and 235 mg/dL. Fasting BSG this morning improved to 179 mg/dL. * As patient is likely still somewhat basally deficient, will continue with an increased lantus dose for today. * Will tighten novolog scale slightly. * Patient continues on prednisone 15mg and is tolerating a diet. 03/01 * Patient admitted for orthostasis secondary to SVT. Patient's BSGs have been in the 200sfor much of this admission. He was continued on home NPH but no Lantus. Will resume lantus today and tighten novolog scale to better reflect total outpatient regimen, in addition to inpatient stressors. * Patient ordered and tolerating a diet. PLAN FOR INPATIENT GLYCEMIC CONTROL: * Basal insulin * Lantus 15 units SQ QAM * Bolus insulin * NovoLog per scale ACHS or Q6hrs while NPO * Goal Range: Low 110 mg/dL - High 150 mg/dL * Correction Factor: 20 mg/dL/unit * Nutritional / Prandial insulin per carb ratio of 1 unit per 6 grams CHO consumed (1 unit per 5 grams CHO consumed with breakfast)
[2025-03-04] MEDS: INSULIN ASPART PER UNIT CHARGE SC SCH (17:06)
--- NOTE | 2025-03-04 21:53 | Electrocardiogram Report ---
Test Reason : Blood Pressure : */* mmHG Vent. Rate : 69 BPM Atrial Rate : 69 BPM P-R Int : 144 ms QRS Dur : 80 ms QT Int : 430 ms P-R-T Axes : 76 54 58 degrees QTcB Int : 460 ms Normal sinus rhythm Nonspecific T wave abnormality When compared with ECG of 25-Feb-2025 06:10, Premature atrial complexes are no longer Present Confirmed by Ahmet Lim ([id number]) on 03/04/2025 9:53:15 PM Referred By: REFERRED SELF Confirmed By: Ahmet Lmi
[2025-03-04 23:05] VITALS: RESP 20
[2025-03-05] MEDS: INSULIN ASPART PER UNIT CHARGE SC SCH (08:07)
--- NOTE | 2025-03-05 10:03 | Discharge Summary ---
Discharge Summary Date of Service March 05, 2025 Principal Dx & Hospital Course #1 = Principal Diagnosis (1) SVT (supraventricular tachycardia): -Status post adenosine 6 mg x 1 with aborted SVT in ED. Brief recurrence responded well to IV metoprolol - No recurrent significant SVT, brief runs into the 130 range - Most consistent with intermittent treatment atrial fibrillation. Echocardiogram unremarkable. - con't metoprolol -awaiting rehab placement, not eligible for [facility] -[facility] -Pt plans to return [place] (2) Elevated troponin: -Troponins normalized, echocardiogram largely unremarkable. 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 Reports that when he stands up he feels very lightheaded "like he is going to pass out." Denies any chest pain. Denies any nausea or vomiting. Denies any abdominal pain. Denies any fevers. He is on Eliquis. He states that similar symptoms occurred a few months ago when he was admitted here at the hospital.. This morning started with left-sided chest pain and pressure. Patient reports no antecedent illness. No medication changes or other events elicited with the start of symptoms. Presentation to the ED noted to have a heart rate of 190. He was given adenosine after initial EKG and labs are drawn. Rhythm improved in the low 100s. His mother brief run into the 190s. Was given 5 mg of IV Lopressor and his rate has been in the 80s since then. Underlying rhythm after adenosine was sinus tachycardia. Vital signs remained stable. He was referred for admission for rate and rhythm evaluation. Further diagnostic testing Further salient history. Patient reports that he has had chest pressure and shortness of breath with exertion but has been progressive over the last several months. He also has a history of atrial fibrillation. Continues with Eliquis for DVT. States that he has had a [facility] however he has been unable to coordinate these appointments for the last several months. States that during these episodes specifically with given the adenosine he feels almost like an elephant is sitting on his chest. Symptoms have been worse over the last several days with the dizziness and orthostasis as well. Discharge Exam GENERAL APPEARANCE NAD, activity normal for age, well developed/ well nourished, no cyanosis, pallor, or diaphoresis. EYES lids/conjunctiva normal. EARS/NOSE/THROAT Mucous membranes moist, nares normal, lips/teeth normal uvula midline without oral pharyngeal erythema, exudate or swelling TMs normal bilaterally. No lymphangitis/lymphedema. HEAD/NECK normocephalic atraumatic, no facial trauma, neck is supple. RESPIRATORY respiratory effort normal, speaks in full sentences, no tripod position, no accessory muscle use. Lungs clear to auscultation without rhonchi, wheezes, rales CARDIAC Regular rate and rhythm, no edema. ABDOMINAL Soft, ND/NT. No evidence of fluid wave. No pulsatile masses on exam, rebound tenderness, [place] sign or pain over Mcburney's point. MUSCLES/EXTREMITIES No abnormal range of motion, no swelling. SKIN Warm, pink and dry. No rashes, dermatoses, petechiae or lesions. NEUROLOGICAL Speech is clear and appropriate. Normal level of consciousness. Gait and coordination are normal. 5/5 strength in all extremities. PSYCH Normal mood and affect. Judgement/competence is appropriate Discharge Plan Discharge Items Patient Disposition: Home - Self-Care Reason For Visit: TACHYCARDIA/CHEST PAIN Discharge Diagnosis: SVT Condition on Discharge: Fair Activity: Resume your previous activity Non-emergency contact: Primary Care Provider Call non-emergency contact if: you have any medication questions Follow-up/Referrals: Jaki Martinez PA-C [Physician Upsetter Helper] - (Follow up as needed 4 weeks from discharge. Please call to make an appointment) Reji Jarrett MD [Primary Care Provider] - Diet: Carb Consistent or DM2 Addtl Attending Provider Instructions: Follow up with PMD in 2 weeks Addtl Thermodynamic Physicist Provider Instructions: Orthopedic Discharge Instructions: Recommend continuing physical therapy for the left shoulder. You may do range of motion as tolerated. Follow-up in our office approximately 4 weeks from discharge as needed. You may also choose to follow-up with an orthopedist closer to where you are currently living in [facility]. Pending Studies at Discharge: No Stand-Alone Forms: My [facility], Smoking Cessation Medications and DC Order Prescriptions: New metoprolol tartrate 25 mg Tablet 12.5 mg PO BID Qty: 60 0RF Continued cholecalciferol (vitamin D3) 25 mcg (1,000 unit) capsule 25 mcg PO BID allopurinol 100 mg tablet 100 mg PO QAM insulin glargine 100 unit/mL (3 mL) insulin pen 10 unit subcut QAM mycophenolate mofetil 500 mg Tablet 1,000 mg PO AMHS Humulin N NPH U-100 Insulin 100 unit/mL Suspension 0 unit SUBCUT DIRECTED PRN (Reason: PREDNISONE) Rx Instructions: 16 UNITS ON PREDNISONE DAYS prednisolone 5 mg Tablet 15 mg PO QAM Rx Instructions: WITH NPH INSULIN atovaquone 750 mg/5 mL Suspension 1,500 mg PO QAM Rx Instructions: must administer with food, preferably a high-fat meal apixaban 5 mg Tablet 5 mg PO AMHS tacrolimus 1 mg Tablet Extended Release 24 Hr 1 mg PO AMHS Rx Instructions: must be taken on empty stomach Renal Vitamin 0.8 mg Tablet 1 tab PO DAILY fludrocortisone 0.1 mg Tablet 0.1 mg PO DAILY midodrine 10 mg Tablet 10 mg PO TID Rx Instructions: TAKE AT 0500, 1100, & 1700. do not give last dose of day after 6PM or within 4 hrs of bedtime insulin aspart U-100 [Novolog FlexPen U-100 Insulin] 100 unit/mL (3 mL) Insulin Pen 0 unit SUBCUT TIDM Rx Instructions: TAKES 8 UNITS W/BREAKFAST, 10 UNITS W/LUNCH, 10 UNITS W/SUPPER PLUS SLIDING SCALE WITH HIS MEALS 151-200 - 2 UNITS 201-250 - 4 UNITS 251-300 - 6 UNITS 301-350 - 8 UNITS 351-400 - 10 UNITS OVER 400 - 10 UNITS duloxetine 30 mg Capsule, Delayed Rel Sprinkle 30 mg PO DAILY levothyroxine [Synthroid] 112 mcg Tablet 112 mcg PO DAILYBB Qty: 30 0RF Discontinued propranolol 10 mg Tablet 20 mg PO AMHS Discharge Orders: Discharge Order (Routine); Ordered 03/05/25 Ordered By: Wilberto Quinones/Other Patient Handouts: Managing Type 2 Diabetes Admission Data Admit Date/Time: 02/24/25 11:04 Attending Provider: Wilberto Menchaca Admit Provider: Chilo Callahan Primary Care Provider: Reji Jarrett Other Providers: Chilo Callahan; [facility]; Bashir Lopez; [facility] Hospital Stay Data Consultations 02/24/25 09:03 ED Decision to Admit Stat 02/24/25 16:05 Consult Cardiology Routine 02/27/25 15:17 Consult Orthopedic Surgery Routine Pending Results Patient Have Any Pending Studies at Discharge: No Discharge Instructions Given to Patient (Per Discharging Provider) Follow up with PMD in 2 weeks Total Time Total Time Spent Total Time Spent (In Minutes): 50 Coding Level of Care Code 78699 INP/OBS DISCH >30 MIN Diagnoses SVT (supraventricular tachycardia) I47.10 Elevated troponin R79.89 Diabetes type 2, controlled E11.9 CKD (chronic kidney disease), stage III N18.30 Hypothyroidism E03.9
[2025-03-05 10:16] VITALS: PULSE 88; TEMP 97.5; O2SAT 97
[2025-03-05 12:35] VITALS: BP 148/74
== END 2025-03-05 13:46 | disposition home or self-care (01) | DRG 309 ==
LOC: ED 06:08 → 2E 11:04 → SUATTDRO 11:04 → 2E 18:46